=== PATIENT | female | born 2000 | race Caucasian/White ===

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

== ENCOUNTER → 2022-03-30 13:49 | Outpatient (BNVA) | payer BC, MEDICAID, SELFPAY | PROVIDERS: PCP Nurse Practitioner; Visit Provider Registered Nurse Neonatal Intensive Care | DX: J02.9 Acute pharyngitis, unspecified (principal) | CPT/HCPCS: 87880 ==

== ENCOUNTER → 2022-08-05 14:42 | Outpatient (BNVA) | payer BC, MEDICAID, SELFPAY | PROVIDERS: PCP Nurse Practitioner; Visit Provider Nurse Practitioner Family | DX: M79.641 Pain in right hand (principal) | CPT/HCPCS: 73130 ==

== ENCOUNTER 2022-10-17 22:19 | Emergency (ER) | payer BC, MEDICAID, SELFPAY ==
[2022-10-17 22:47] VITALS: BP 116/75; PULSE 66; RESP 16; TEMP 36.7; O2SAT 100; BMI 31.1
--- NOTE | 2022-10-17 23:08 | ED_ITS ---
HPI - Female Genitourinary General: Chief complaint: Vaginal Bleeding Stated complaint: vaginal bleeding, 6 weeks Time Seen by Provider: 10/17/22 22:56 History of Present Illness: Patient is a G2, P1 7-week 21-year-old female who comes to the ED with vaginal bleeding. Patient says her last menstrual period was on August 29, 2022. She states that tonight she had sexual intercourse and after that she started having some light vaginal bleeding. She describes the bleeding as red blood but is not needing to wear any pads for the bleeding. She denies any fevers, c hills, abdominal pain, cramping pain, dysuria, hematuria or vaginal discharge. Patient does endorse some baseline nausea since becoming but denies any other symptoms. Associated symptoms: Deny abdominal pain, headache(s) or nausea Date of Last Menstrual Period: 08/29/22 Review of Systems Const: Denies: fever(s), chills or fatigue Eyes: Denies: change in vision or eye discomfort ENMT: Denies: throat pain, odynophagia, nasal discharge or nasal congestion Card: Denies: chest pain, palpitations, edema, swelling of feet/ankles, dyspnea on exertion or orthopnea Resp: Denies: dyspnea, productive cough or non-productive cough GI: Denies: abdominal pain, nausea, vomiting, diarrhea, constipation or abdiel tochezia : Reports: vaginal bleeding; Denies: flank pain, dysuria or hematuria Musc: Denies: neck pain, back pain or extremity swelling Skin/Breast: Denies: rash or new lesions Neuro: Denies: headache(s), numbness in extremities or weakness in extremities [facility] ED PFSH: Social History Smoking and tobacco status: current every day smoker Female Reproductive History: Date of last menstrual period: 08/29/22 Para: 1 Physical Exam Const: COMMON NORMALS: no acute distress, patient oriented x3, healthy a ppearing and alert HENMT: COMMON NORMALS: normocephalic HEAD & SCALP: normocephalic MOUTH: Normal oral and palatal mucosa present THROAT: posterior oropharynx normal and uvula midline Neck/C-Spine: COMMON NORMALS: supple GENERAL: Yes normal visual inspection Resp: COMMON NORMALS: normal respiratory effort, No retractions, No use of accessory muscles and clear to auscultation bilaterally AUSCULTATION: clear to auscultation bilaterally Cardio: COMMON NORMALS: regular rate, regular rhythm, S1 normal heart sound present, S2 normal heart sound present, No gallops present (Cardio), No clicks present (Cardio), No murmurs present (Cardio) and Peripheral pulses 2+ throughout RATE: regular rate RHYTHM: regular rhythm HEART SOUNDS: S1 normal heart sound present and S2 normal heart sound present PERIPHERAL PULSES: Peripheral pulses 2+ throughout GI: COMMON NORMALS: Normal to inspection, nondistended, normoactive bowel sounds present, Soft to palpation, non-tender and no masses PALPATION: Yes Soft to palpation : COMMON NORMALS: Yes no CVA tenderness BLADDER/KIDNEY EXAM: Yes no CVA tenderness Back/Pelvis: COMMON NORMALS: no CVA tenderness Extremity: COMMON NORMALS: normal to inspection Neuro: COMMON NORMALS: patient oriented x3 SENSORIUM/ORIENTATION: Yes alert GAIT: Yes Normal gait present Skin: GENERAL SKIN EXAM: dry skin Course Vital Signs: Vital signs: Vital Signs Temperature 98.1 F 10/17/22 22:47 Pulse Rate 57 L 10/18/22 01:08 Respiratory Rate 16 10/18/22 01:08 Blood Pressure 112/48 10/18/22 01:08 Pulse Oximetry 100 10/18/22 01:08 Oxygen Delivery Me thod Room Air 10/17/22 23:16 [facility] - Female Medical Decision Making Patient is a G2, P1 7-week 21-year-old female who comes to the ED with vaginal bleeding. Patient says her last menstrual period was on August 29, 2022. She states that tonight she had sexual intercourse and after that she started having some light vaginal bleeding. She describes the bleeding as red blood but is not needing to wear any pads for the bleeding. She denies any fevers, chills, abdominal pain, cramping pain, dysuria, hematuria or vaginal discharge. Patient does endorse some baseline nausea since becoming but denies any other symptoms. Vitals are stable. Exam of the patient is benign she appears nontoxic in no acute distress or pain. CBC is unremarkable. Beta hCG quant 18,690. UA was unremarkable. Ultrasound showed single live intrauterine gestational measuring 6 weeks and no other acute findings noted. Patient was stable for discharge home and diagnosed with vaginal bleeding in the first trimester Bleeding is likely due to post intercourse. She was told to follow-up with her OB doctor within the next week for reevaluation. Strict return to ED precautions given. Patient understood and agreed with plan. Lab Data I reviewed the patient's lab results. 10/17/22 23: Radiology Impressions Obstetrics Ultrasound 10/17/22:21 IMPRESSION: 1. Single live intrauterine gestation measuring 6 weeks and 0 days by ultrasound. 2. Both ovaries not visualized. Laboratory Results WBC 9.3 10^3/uL (4.5-13.0) 10/17/22 23: RBC 5.24 10^6/uL (4.1-5.3) 10/17/22: Hgb 12.9 g/dL (11.5-15.3) 10/17/22: Hct 41.6 % (37.0-47.0) 10/17/22: MCV 79.4 fl (81-99) L 10/17/22: MCH 24.6 pg (28.0-34.0) L 10/17/22 23: MCHC 31.0 g/dL (30.0-36.0) 10/17/22: RDW 13.8 % (12.1-15.1) 10/17/22: Plt Count 250 10^3/cmm (130-400) 10/17/22 23: MPV 10.1 fL (7.4-10.4) 10/17/22 23: Neut % (Auto) 71.4 % 10/17/22 23: Lymph % (Auto) 19.7 % 10/17/22 23: [place] % (Auto) 6.6 % 10/17/22 23: Eos % (Auto) 1.5 % 10/17/22 23: Baso % (Auto) 0.4 % 10/17/22 23: Neut # (Auto) 6.65 10^3/uL (1.8-8.0) 10/17/22 23: Lymph # (Auto) 1.8 10^3/uL (1.5-6.5) 10/17/22 23:03 [place] # (Auto) 0.6 10^3/uL (0.2-0.9) 10/17/22 23:03 Eos # (Auto) 0.1 10^3/uL (0.0-0.8) 10/17/22 23:03 Baso # (Auto) 0.0 10^3/uL (0.0-0.1) 10/17/22 23:03 Nucleated RBC % (auto) 0 % 10/17/22 23:03 Nucleated RBCs # 0.0 /100WBC 10/17/22 23:03 Ser , Semi-Qnt 30459.00 mIU/mL 10/17/22 23:03 Urine Color Yellow (Yellow) 10/18/22 00:15 Urine Appearance Clear (CLEAR) 10/18/22 00:15 Urine pH 6 (5-7) 10/18/22 00:15 Ur Specific [place] 1.020 (1.005-1.030) 10/18/22 00:15 Urine Protein Neg (Negative) 10/18/22 00:15 Urine Glucose (UA) Norm (Normal) 10/18/22 00:15 Urine Ketones Negative (Negative) 10/18/22 00:15 Urine Blood 3+ (Negative) H 10/18/22 00:15 Urine Nitrate Negative (Negative) 10/18/22 00:15 Urine Bilirubin Neg (Negative) 10/18/22 00:15 Urine Urobilinogen Norm mg/dL (Negative) 10/18/22 00:15 Ur Leukocyte Esterase Trace (Negative) H 10/18/22 00:15 Urine RBC 25-40 /hpf (0-2) H 10/18/22 00:15 Urine WBC 0-4 /hpf (0-5) H 10/18/22 00:15 Ur Squamous Epith Cells 0-4 /hpf (0-5) H 10/18/22 00:15 Amorphous Sediment Not Reportable 10/18/22 00:15 Urine Bacteria 1+ /hpf (NONE) H 10/18/22 00:15 Urine Sperm 2+ /hpf 10/18/22 00:15 Blood Type A Positive 10/17/22 23:15 Rho(D) Type Positive 10/17/22 23:15 Discharge Plan Discharge Patient Disposition: Home Clinical Impression: Vaginal bleeding before 22 weeks gestation Condition: Stable Discharge Orders: Discharge ED (Routine); Ordered 05/21/23 Ordered By: Jamey Martinez Referrals: Karlos Magdaleno MD [Primary Care Provider] - Discharge Diet: Regular Discharge Activity: Increase activity as tolerated Patient Instructions: (ED), at 7 to 10 Weeks (ED) Activity Restrictions/Additional Instructions: Follow-up with your OB provider at your next scheduled appointment. Take medications as prescribed. Return to the ER or your medical provider if condition worsens. Please read and understand discharge instructions. Thank you for choosing [facility] for your healthcare needs today. Please realize this is an emergency room and that we are providing you with a medical screening exam and this may not be complete and all inclusive of all the testing and or work up that you may need to determine your ailment or severity of your illness. It is very important that you follow up as instructed or that you return to the Emergency Department should you have concerns or if your condition changes or worsens in any way. Coding Level of Care Code ED Jeeper Operator for Brunilda Gotti
[2022-10-17 23:16] VITALS: BP 124/83; PULSE 74; RESP 16; O2SAT 100
--- NOTE | 2022-10-17 23:21 | USR_ITS ---
PROCEDURE INFORMATION: Exam: US , Limited Exam date and time: 10/17/2022 11:35 PM Age: 21 years old Clinical indication: Lmp or gestational age (in weeks): Vag bleed; Antepartum complications; Bleeding; ; Additional info: 7 weeks with vaginal bleeding TECHNIQUE: Imaging protocol: Real-time ultrasound of the maternal uterus with image documentation. Exam focused on the clinical indication. COMPARISON: US OB >= 14 weeks fetus [id number] 06/09/2021 4:04 PM FINDINGS: Gestation: There is a single intrauterine gestational sac present. heart rate: heart rate is 122 bpm. BIOMETRY: Volin-Rump length (CRL): pole is present with crown-rump length of 0.32 cm. Ultrasound age is 6 weeks 0 days with COLT of 06/12/2023. MATERNAL: Right ovary/adnexa: Right ovary not visualized. Left ovary/adnexa: Left ovary not visualized. US/US OB limited [id number] IMPRESSION: 1. Single live intrauterine gestation measuring 6 weeks and 0 days by ultrasound. 2. Both ovaries not visualized.
[2022-10-17 23:22] LABS: Basophils % 0.4 %; Eosinophils # 0.1 10^3/uL (0.0-0.8); Eosinophils % 1.5 %; Hematocrit 41.6 % (37.0-47.0); Hemoglobin 12.9 g/dL (11.5-15.3); Lymphocytes # 1.8 10^3/uL (1.5-6.5); Lymphocytes % 19.7 %; Mean Corpuscular Hemoglobin 24.6 pg (28.0-34.0); Mean Corpuscular Volume 79.4 fl (81-99); Mean Platelet Volume 10.1 fL (7.4-10.4); Monocytes # 0.6 10^3/uL (0.2-0.9); Monocytes % 6.6 %; Neutrophils # 6.65 10^3/uL (1.8-8.0); Neutrophils % 71.4 %; Nucleated Red Blood Cells % 0 %; Platelet Count 250 10^3/cmm (130-400); Red Blood Count 5.24 10^6/uL (4.1-5.3); Red Cell Distribution Width 13.8 % (12.1-15.1); White Blood Count 9.3 10^3/uL (4.5-13.0)
[2022-10-18 00:42] LABS: Add Urine Microscopic? YES; Bilirubin Urine Neg (Negative); Blood Urine 3+ (Negative); Glucose Urine UA Norm (Normal); Ketones Urine Negative (Negative); Leukocyte Esterase Urine Trace (Negative); Nitrate Urine Negative (Negative); Protein Urine Neg (Negative); Urine Appearance Clear (CLEAR); Urine Color Yellow (Yellow); Urobilinogen Urine Norm (Negative); pH Urine 6 (5-7)
[2022-10-18 00:43] LABS: Bacteria Urine 1+ /hpf; WBC Urine 0-4 /hpf (0-5)
[2022-10-18 00:44] LABS: Sperm Urine 2+ /hpf; Squamous Epithelial Cell Urine 0-4 /hpf (0-5)
[2022-10-18 00:45] LABS: Add Urine Culture? Yes; RBC Urine 25-40 /hpf (0-2)
[2022-10-18 01:08] VITALS: BP 112/48; PULSE 57; RESP 16; O2SAT 100
== END 2022-10-18 01:10 | disposition home or self-care (01) ==
PROVIDERS: Emergency Medicine; Emergency Provider Physician Assistant; PCP Family Medicine
DX: O20.9 Hemorrhage in early pregnancy, unspecified (principal); O99.331 Smoking (tobacco) complicating pregnancy, first trimester; F17.210 Nicotine dependence, cigarettes, uncomplicated; Z3A.01 Less than 8 weeks gestation of pregnancy
CPT/HCPCS: 76815; 81001; 84702; 85025; 86900; 87086; 99284

== ENCOUNTER 2023-03-28 21:43 | Outpatient (CLI) | payer MEDICAID, SELFPAY ==
[2023-03-28] VITALS (9 sets, daily range): BP systolic 112–123; BP diastolic 56–71; PULSE 87–108; RESP 16; TEMP 35.9; BMI 29.9
[2023-03-28 22:54] LABS: Add Urine Culture? Yes; Add Urine Microscopic? YES; Amorphous Sediment Urine 2+ /hpf; Bacteria Urine 1+ /hpf; Bilirubin Urine Neg (Negative); Blood Urine Neg (Negative); Glucose Urine UA Norm (Normal); Ketones Urine Negative (Negative); Leukocyte Esterase Urine 2+ (Negative); Nitrate Urine Negative (Negative); Protein Urine Neg (Negative); Squamous Epithelial Cell Urine 0-4 /hpf (0-5); Urine Appearance Hazy (CLEAR); Urine Color Yellow (Yellow); Urobilinogen Urine Neg (Negative); WBC Urine 25-40 /hpf (0-5); pH Urine 7 (5-7)
== END 2023-03-28 23:23 | disposition home or self-care (01) ==
LOC: OPOB 21:43 → OBGYN 21:46
PROVIDERS: PCP Family Medicine; Visit Provider Family Medicine
DX: O26.899 Other specified pregnancy related conditions, unspecified trimester (principal); Z3A.00 Weeks of gestation of pregnancy not specified; R10.9 Unspecified abdominal pain; N89.8 Other specified noninflammatory disorders of vagina
CPT/HCPCS: 59025; 81001; 83986; 87086; 99211

== ENCOUNTER 2023-04-01 21:44 | Outpatient (CLI) | payer MEDICAID, SELFPAY ==
[2023-04-01 21:44] VITALS: BMI 31.8
[2023-04-01 22:12] VITALS: BP 120/68; PULSE 96; TEMP 36.1
[2023-04-01 22:27] VITALS: BP 113/69; PULSE 96
[2023-04-01 22:42] VITALS: BP 135/79; PULSE 100
[2023-04-01 22:57] VITALS: BP 118/66; PULSE 97
[2023-04-01 23:13] VITALS: BP 118/66; PULSE 97
== END 2023-04-01 23:19 | disposition home or self-care (01) ==
LOC: OPOB 21:52 → OBGYN 22:08
PROVIDERS: PCP Family Medicine; Visit Provider Family Medicine
DX: O46.90 Antepartum hemorrhage, unspecified, unspecified trimester (principal); Z3A.00 Weeks of gestation of pregnancy not specified; R10.9 Unspecified abdominal pain
CPT/HCPCS: 59025; 99211

== ENCOUNTER 2023-05-05 21:45 | Outpatient (CLI) | payer MEDICAID, SELFPAY ==
[2023-05-05] VITALS (9 sets, daily range): BP systolic 122–147; BP diastolic 63–87; PULSE 77–107; RESP 16; BMI 33.6
[2023-05-05] MEDS: promethazine 25 mg/mL SDV 1 mL IM (23:27)
[2023-05-06 00:06] VITALS: BP 131/80; PULSE 70
[2023-05-06 00:21] VITALS: BP 121/71; PULSE 102
== END 2023-05-06 00:30 | disposition home or self-care (01) ==
LOC: OPOB 21:55 → OBGYN 21:56
PROVIDERS: PCP Family Medicine; Visit Provider Family Medicine
DX: O21.9 Vomiting of pregnancy, unspecified (principal); Z3A.00 Weeks of gestation of pregnancy not specified
CPT/HCPCS: 59025; 96372; 99211; J2550

== ENCOUNTER 2023-05-22 09:40 | Outpatient (CLI) | payer MEDICAID, SELFPAY ==
[2023-05-22 09:56] VITALS: BMI 34.7
[2023-05-22 10:00] VITALS: BP 132/84; PULSE 92
[2023-05-22 10:17] LABS: Bilirubin Urine Neg (Negative); Blood Urine 2+ (Negative); Glucose Urine UA Norm (Normal); Ketones Urine Negative (Negative); Leukocyte Esterase Urine 2+ (Negative); Nitrate Urine Negative (Negative); Protein Urine Neg (Negative); Specific Gravity, Urine 1.015 (1.005-1.030); Urine Appearance Hazy (CLEAR); Urine Color Yellow (Yellow); Urobilinogen Urine Norm (Negative); WBC Urine >100 /hpf (0-5); pH Urine 6 (5-7)
[2023-05-22 10:18] LABS: Add Urine Culture? Yes; Bacteria Urine 2+ /hpf
[2023-05-22 10:21] VITALS: BP 131/73; PULSE 82
[2023-05-22 10:33] LABS: Urine Creatinine 93 mg/dL (28-217); Urine Protein Random 16 mg/dL
[2023-05-22 10:34] LABS: UPRO/UCREAT Ratio 0.17 mg/mg CR
[2023-05-22 10:40] VITALS: BP 132/83; PULSE 83
[2023-05-22 10:47] VITALS: BP 132/83; PULSE 83
== END 2023-05-22 10:45 | disposition home or self-care (01) ==
LOC: OPOB 09:45 → OBGYN 09:46
PROVIDERS: Absent Provider Family Medicine; PCP Family Medicine; Visit Provider Family Medicine
DX: O16.9 Unspecified maternal hypertension, unspecified trimester (principal); Z3A.00 Weeks of gestation of pregnancy not specified
CPT/HCPCS: 59025; 81001; 82570; 84156; 87086; 99211

== ENCOUNTER 2023-05-26 20:13 | Outpatient (CLI) | payer MEDICAID, SELFPAY ==
[2023-05-26 20:06] VITALS: BMI 37.5
[2023-05-26 20:23] VITALS: BP 143/75; PULSE 103; TEMP 35.7
[2023-05-26 20:55] VITALS: BP 136/85; PULSE 91; TEMP 36
[2023-05-26 21:00] VITALS: BP 136/38; PULSE 105; RESP 16; TEMP 36
== END 2023-05-26 21:00 | disposition home or self-care (01) ==
LOC: OPOB 20:14 → OBGYN 20:15
PROVIDERS: PCP Family Medicine; Visit Provider Family Medicine
DX: O26.899 Other specified pregnancy related conditions, unspecified trimester (principal); Z3A.00 Weeks of gestation of pregnancy not specified; M54.9 Dorsalgia, unspecified
CPT/HCPCS: 59025; 99211

== ENCOUNTER 2023-05-30 14:17 | Outpatient (CLI) | payer MEDICAID, SELFPAY ==
[2023-05-30] VITALS (10 sets, daily range): BP systolic 117–160; BP diastolic 59–92; PULSE 86–103; BMI 37.0
== END 2023-05-30 16:45 | disposition home or self-care (01) ==
LOC: OPOB 14:17 → OBGYN 14:18
PROVIDERS: PCP Family Medicine; Visit Provider Family Medicine
DX: O26.899 Other specified pregnancy related conditions, unspecified trimester (principal); Z3A.00 Weeks of gestation of pregnancy not specified; R10.9 Unspecified abdominal pain
CPT/HCPCS: 59025; 99211

== ENCOUNTER 2023-06-02 15:27 | Outpatient (CLI) | payer MEDICAID, SELFPAY ==
[2023-06-02] VITALS (9 sets, daily range): BP systolic 117–161; BP diastolic 64–97; PULSE 102–116; RESP 16–18; TEMP 36.4; BMI 37.2
[2023-06-02 16:11] LABS: Basophils % 0.4 %; Eosinophils % 0.5 %; Hematocrit 39.3 % (36-47); Lymphocytes # 1.4 10^3/uL (1.5-6.5); Lymphocytes % 16.8 %; Mean Corpuscular HGB Conc 29.3 g/dL (30-55); Mean Corpuscular Hemoglobin 24.4 pg (27-33); Mean Corpuscular Volume 83.3 fl (85-98); Mean Platelet Volume 11.1 fL (7.4-10.4); Monocytes # 0.6 10^3/uL (0.2-0.9); Monocytes % 7.2 %; Neutrophils # 6.18 10^3/uL (1.8-8.0); Neutrophils % 74.4 %; Nucleated Red Blood Cells % 0 %; Platelet Count 102 10^3/cmm (157-399); Red Blood Count 4.72 10^6/uL (3.85-5.65); Red Cell Distribution Width 16.3 % (12.1-15.1); White Blood Count 8.31 10^3/uL (4.5-13.0)
[2023-06-02 16:24] LABS: Glucose Urine UA Norm (Normal); Ketones Urine 1+ (Negative); Protein Urine Trace (Negative); Urine Appearance SL Hazy (CLEAR); Urine Color Yellow (Yellow); pH Urine 5 (5-7)
[2023-06-02 16:25] LABS: Bilirubin Urine Neg (Negative); Blood Urine 3+ (Negative); Leukocyte Esterase Urine 2+ (Negative); Nitrate Urine Negative (Negative); Urobilinogen Urine 1 mg/dL (Negative)
[2023-06-02 16:27] LABS: Bacteria Urine 1+ /hpf; Mucus Urine 1+ /hpf; WBC Urine 40-55 /hpf (0-5)
[2023-06-02 16:28] LABS: Add Urine Culture? Yes
[2023-06-02 17:10] LABS: Alanine Aminotransferase 10 U/L (0-33); Albumin Level 3.1 g/dL (3.5-5.2); Alkaline Phosphatase 188 U/L (35-105); Anion Gap 15.1 (5-19); Aspartate Amino Transferase 18 U/L (0-32); Blood Urea Nitrogen 12 mg/dL (6-20); Calcium 8.9 mg/dL (8.5-10.5); Carbon Dioxide 21 mmol/L (22-29); Chloride 104 mmol/L (98-107); Creatinine Clr Calc Pharmacy 152.1103; Globulin 3.4 g/dL (1.3-4.6); Glomerular Filtration Rate 127.5 mL/min (90-130); Glucose 84 mg/dL (65-115); Osmolality Calculated 281 mOsm/kg (285-295); Potassium 4.1 mmol/L (3.5-5.1); Sodium 136 mmol/L (136-145); Total Bilirubin 0.2 mg/dL (0.15-1.2); Total Protein 6.5 g/dL (6.6-8.7); Uric Acid 5.8 mg/dL (2.4-5.7)
[2023-06-02 17:12] LABS: Urine Creatinine 177 mg/dL (28-217)
[2023-06-02 17:13] LABS: UPRO/UCREAT Ratio 0.19 mg/mg CR; Urine Protein Random 33 mg/dL
== END 2023-06-02 17:30 | disposition home or self-care (01) ==
LOC: OPOB 15:35 → OBGYN 15:37
PROVIDERS: PCP Family Medicine; Visit Provider Family Medicine
DX: O16.9 Unspecified maternal hypertension, unspecified trimester (principal); Z3A.00 Weeks of gestation of pregnancy not specified
CPT/HCPCS: 36415; 59025; 80053; 81001; 82570; 84156; 84550; 85025; 87086; 99211

== ENCOUNTER 2023-06-04 21:29 | Inpatient (IN) | payer MEDICAID, SELFPAY ==
[2023-06-04] VITALS (41 sets, daily range): BP systolic 96–149; BP diastolic 52–105; PULSE 83–118; RESP 17; TEMP 36.7; O2SAT 98–100; BMI 37.5
[2023-06-04 20:42] LABS: Bilirubin Urine Neg (Negative); Blood Urine 3+ (Negative); Glucose Urine UA Norm (Normal); Ketones Urine 1+ (Negative); Nitrate Urine Negative (Negative); Protein Urine 1+ (Negative); Urine Appearance Cloudy (CLEAR); Urine Color Yellow (Yellow); pH Urine 6 (5-7)
[2023-06-04 20:43] LABS: Add Urine Microscopic? YES; Bacteria Urine 2+ /hpf; Leukocyte Esterase Urine 2+ (Negative); RBC Urine 25-40 /hpf (0-2); Urobilinogen Urine 1 mg/dL (Negative); WBC Urine 55-80 /hpf (0-5)
[2023-06-04 20:44] LABS: Add Urine Culture? No
[2023-06-04 21:28] LABS: Urine Creatinine 169 mg/dL (28-217)
[2023-06-04 21:31] LABS: UPRO/UCREAT Ratio 0.24 mg/mg CR; Urine Protein Random 41 mg/dL
[2023-06-04 21:56] LABS: Basophils % 0.3 %; Eosinophils # 0.1 10^3/uL (0.0-0.8); Eosinophils % 0.4 %; Hematocrit 35.8 % (36-47); Lymphocytes # 2.4 10^3/uL (1.5-6.5); Lymphocytes % 20.4 %; Mean Corpuscular HGB Conc 32.1 g/dL (30-55); Mean Corpuscular Hemoglobin 24.3 pg (27-33); Mean Corpuscular Volume 75.7 fl (85-98); Mean Platelet Volume 10.8 fL (7.4-10.4); Monocytes # 0.7 10^3/uL (0.2-0.9); Monocytes % 5.6 %; Neutrophils # 8.38 10^3/uL (1.8-8.0); Neutrophils % 72.7 %; Nucleated Red Blood Cells % 0 %; Platelet Count 222 10^3/cmm (157-399); Red Blood Count 4.73 10^6/uL (3.85-5.65); Red Cell Distribution Width 16.4 % (12.1-15.1); White Blood Count 11.53 10^3/uL (4.5-13.0)
[2023-06-04] MEDS: lactated ringers 1,000 ML 999 ML IV (22:00)
--- NOTE | 2023-06-04 23:26 | P.ANESASSM_ITS ---
Pre-Anesthetic Assessment Height/Weight: Height 1.55 m Weight 90.265 kg Temp Pulse Resp BP Pulse Ox O2 Del Method 98.1 F 118 H 17 118/74 98 Room Air 06/04/23 22:58 06/04/23 23:23 06/04/23 21:21 06/04/23 23:22 06/04/23 23:23 06/04/23 21:43 Preop Diagnosis: Labor pain TUTU Was Beta Timoteo taken within 24 hours: N/A Was Clonidine taken within 24 hours: N/A Social No alcohol and No tobacco Exam alert, oriented x 3, clear to auscultation bilaterally and regular rate & rhythm Airway Submandibular: within normal limits Cervical ROM: within normal limits Mallampati: Class II Dentition: full History/ROS No significant history except as noted and No significant complaints CV/HEM None reported None reported Hepatic None reported GI None reported Metabolic None reported Musc/skel None reported Neuropsych None reported Anesthetic Plan ASA status: 2 Anesthesia: Anesthesia Evaluation and Regional (specify below) (TUTU) Risk of > 500 ml blood loss (7ml/kg in children): No Medications/Allergies Home Medications Medication Instructions Recorded Confirmed Last Taken Type [id number] 1 mg 1 tab PO DAILY 03/28/23 03/28/23 1 Day Ago History tablet ~03/27/23 Allergies Allergy/AdvReac Type Severity Reaction Status Date / Time No Known Allergies Allergy Verified 03/28/23 23:04 Current Medications Generic Name Dose Route Start Last Admin Trade Name Freq PRN Reason Stop Dose Admin Lactated Ringer's 1,000 mls @ 999 mls/hr 06/04/23 21:19 06/04/23 22:00 Lactated Ringers IV 999 mls/hr .Q1H1M PRN Administration See label comments PFS Anesthesia Social History Smoking and tobacco/nicotine status: current every day tobacco/nicotine user Female Reproductive History : 3 Para: 1 Data Anesthesia 06/04/23 21:20 Short CBC 06/04/23 Range/Units 21:20 WBC 11.53 (4.5-13.0) 10^3/uL Hgb 11.50 L (12.4-14.8) g/dL Hct 35.8 L (36-47) % MCV 75.7 L (85-98) fl Plt Count 222 (157-399) 10^3/cmm Neut % (Auto) 72.7 % Neut # (Auto) 8.38 H (1.8-8.0) 10^3/uL Urine 06/04/23 Range/Units 20:00 Urine Color Yellow (Yellow) Urine Appearance Cloudy A (CLEAR) Urine pH 6 (5-7) Ur Specific [place] 1.020 (1.005-1.030) Urine Protein 1+ H (Negative) Urine Glucose (UA) Norm (Normal) Urine Ketones 1+ H (Negative) Urine Nitrate Negative (Negative) Urine Bilirubin Neg (Negative) Ur Leukocyte Esterase 2+ H (Negative) Urine RBC 25-40 H (0-2) /hpf Urine WBC 55-80 H (0-5) /hpf Blood Bank 06/04/23 21:20 Blood Type A Positive Rho(D) Type Rh positive Antibody Screen Negative Cardiac Studies: 2 No Data to Display
[2023-06-04] MEDS: dextrose 5%-lactated ringers 1,000 ML 125 ML IV (23:28)
--- NOTE | 2023-06-04 23:29 | ANES.PROC ---
Anesthesia Procedures Procedure/Date: 06/04/23 Epidural: Time Out Performed: Yes Consents Signed: Procedure Consent Consent: requested by attending/covering physician, from patient, risks and benefits reviewed and patient agrees to proceed Lumbar Level: L3-L4 Epidural position: sitting Epidural procedure: sterile prep of area, 1% lidocaine to numb the area, 18 g needle, neg for paresthesia, test dose given, 1.5% xylocaine 1:200k epi (4cc), 0.2% Ropivacaine bolus ml (4cc and Fentanyl 100 mcg), placed PCEA, no systemic response, sterile dressing applied, L.U.D. no apparent complications and 0.2% Ropiavacaine @ mls/hr (10cc/hour. ANGELINE at 8cm. Cath placed 2.5 cm into epidural space. Pt tolerated well)
[2023-06-04] MEDS: ROPivacaine syringe 100 MG/50 ML SYRINGE 10 MG EPIDURAL (23:33)
[2023-06-05] VITALS (77 sets, daily range): BP systolic 97–145; BP diastolic 50–94; PULSE 60–129; RESP 16–17; TEMP 35.9–36.6; O2SAT 96–100
[2023-06-05] MEDS: lanolin oint 7 gm 1 APPLIC TOPICAL (01:45)
[2023-06-05] MEDS: ROPivacaine syringe 100 MG/50 ML SYRINGE 10 MG EPIDURAL (03:50)
[2023-06-05] MEDS: oxytocin 30 UNIT/500 ML BAG 600 UNIT IV (07:16)
--- NOTE | 2023-06-05 07:33 | P.HPUD_ITS ---
Labor & Delivery H&P Update Date of Procedure: June 05, 2023 Date H&P Performed: 06/02/23 Changes to previous documentation: The patient demonstrated cervical change, and had consistent contractions Admission Diagnosis: 22-year-old 3 para 2-0-0-2 at 39 weeks estimated gestational age Preop diagnosis: Labor pain Planned procedure: Spontaneous vaginal delivery Other information: The patient has had an unremarkable . There have been no complications. She has had some intermittent high blood pressures that have not been consistent the last couple visits. On further evaluation, the blood pressures appear to be response to pain and her anxiety, but are not it consiste ntly elevated. Her labs have been within normal limits. Her blood type was a positive. Her antibody screen was negative. She passed her glucose screen. Rubella immune. She is GBS negative. In the remainder of her infectious disease profile is within normal limits. Related Problem List Diagnoses (1) 39 weeks gestation of : A&P Assessment and plan (1) 39 weeks gestation of : I anticipate routine labor and delivery. Status: Acute
--- NOTE | 2023-06-05 07:37 | PM.DELIVERY ---
Delivery Note: Date of delivery: June 05, 2023 Pre-delivery diagnoses: 22-year-old 3 para 2-0-0-2 at 39 weeks estimated gestational age Post-delivery diagnoses: Status post spontaneous vaginal delivery Procedure: Spontaneous vaginal delivery Delivering Physician: Karlos Magdaleno Estimated blood loss (mL): 75 Pre-Delivery Course: The patient presented to the hospital in active labor. She was having intermittent elevated blood pressures. They improved when she was not in pain. An epidural was placed. An amniotomy was performed. She progressed to complete without difficulty. Delivery: DELIVERY: The patient progressed to complete without difficulty. She delivered a male with a weight of 3330 g with Apgars of 9, 9. The baby was delivered from the DARREL position and placed on the mother's abdomen. The cord was then clamped and cut. There was no nuchal cord. There was no meconium. The placenta and 3 vessel cord were delivered intact shortly thereafter. The perineum and vaginal vault were carefully examined. No lacerations were noted. Both the mother and the baby were in stable condition. A&P Assessment and plan (1) Spontaneous vaginal delivery: I anticipate routine care Coding Level of Care Code Acute Code for Chg Fwd Diagnoses Spontaneous vaginal delivery O80
--- NOTE | 2023-06-05 09:07 | ANE.PACU2 ---
Inpatient post-anesthesia follow up: Airway intact: Yes Vital signs: Temperature 98.1 F Pulse Rate 103 Respiratory Rate 17 Blood Pressure 118/61 Pulse Oximetry 96 Oxygen Delivery Me thod Room Air Oxygen Flow Rate Fraction of Inspir ed Oxygen Hydration adequate: Yes Nausea and vomiting: No Pain level: 2 Mental status: Baseline Epidural Start/End: Epidural Start Date: 06/04/23 Epidural Start Time: 23:05 Epidural End Date: 06/05/23 Epidural End Time: 07:37
[2023-06-05] MEDS: docusate sodium 100 mg Capsule PO ×2 (09:08→18:25)
[2023-06-05] MEDS: benzocaine-menthol 78 gm Canister 1 SPRAY TOPICAL (09:08)
[2023-06-05] MEDS: prenatal vitamin Capsule 1 CAP PO (09:08)
[2023-06-05] MEDS: ibuprofen 800 mg tablet PO ×3 (09:09→20:18)
[2023-06-05] MEDS: HYDROcodone-acetaminophen 5-325 mg Tablet PO ×2 (12:39→23:10)
--- NOTE | 2023-06-05 13:29 | PC.NURSE ---
Pt up to bathroom, then ambulated to OB-9 for post stay. Oriented to room and call light. Discussed feeding log, and proud parent pack, and what parents need to know.
[2023-06-05 20:35] LABS: Hematocrit 31.4 % (36-47); Mean Corpuscular HGB Conc 32.2 g/dL (30-55); Mean Corpuscular Hemoglobin 24.9 pg (27-33); Mean Corpuscular Volume 77.5 fl (85-98); Mean Platelet Volume 11.1 fL (7.4-10.4); Platelet Count 183 10^3/cmm (157-399); Red Blood Count 4.05 10^6/uL (3.85-5.65); Red Cell Distribution Width 16.5 % (12.1-15.1); White Blood Count 13.39 10^3/uL (4.5-13.0)
--- NOTE | 2023-06-06 08:56 | P.DS_ITS ---
Discharge Providers [employer] Date of Admission: 06/04/23 21:29 Date of Discharge: 06/06/23 Attending Provider at Admission: Karlos Magdaleno MD Attending Provider at Discharge: Karlos Magdaleno MD Primary Care Provider: Karlos Magdaleno MD Diagnoses at Discharge Discharge Diagnosis (1) Spontaneous vaginal delivery: Status: Acute Reason for Visit Reason for Visit: lower abd pain & cramping & GUTIERREZ Hospital Course Hospital Course The patient presented to the hospital in active labor. An epidural was placed. An amniotomy was performed. The patient progressed to complete and had an unremarkable spontaneous vaginal delivery. Her course was unr emarkable. Her bleeding was within normal limits. Her pain was well- controlled. She bottle-fed her . Information Peripartum Data: Infant Delivery Method: Vaginal Physical Exam Narrative: The patient is alert. She appears comfortable. Her heart has a regular rate and rhythm with no murmurs appreciated. Lungs are clear to auscultation bilaterally. Her fundus is firm and below the umbilicus. Urinary Catheter Management: Langston Latex: Cath Placed During This Visit: yes, but has since been removed by the nurse Reason for Continuing Indwelling Catheter: Decision to DC Catheter Urinary Catheter Date of Insertion: 06/05/23 Urinary Catheter Time of Insertion: 00:05 Date Urinary Catheter Removed: 06/05/23 Time Urinary Catheter Discontinued: 07:02 Discharge Data Studies Completed and Pending Laboratory Results WBC 13.39 10^3/uL (4.5-13.0) H 06/05/23 20:24 RBC 4.05 10^6/uL (3.85-5.65) 06/05/23 20:24 Hgb 10.10 g/dL (12.4-14.8) L 06/05/23 20:24 Hct 31.4 % (36-47) L 06/05/23 20:24 MCV 77.5 fl (85-98) L 06/05/23 20:24 MCH 24.9 pg (27-33) L 06/05/23 20:24 MCHC 32.2 g/dL (30-55) 06/05/23 20:24 RDW 16.5 % (12.1-15.1) H 06/05/23 20:24 Plt Count 183 10^3/cmm (157-399) 06/05/23 20:24 MPV 11.1 fL (7.4-10.4) H 06/05/23 20:24 Neut % (Auto) 72.7 % 06/04/23 21:20 Lymph % (Auto) 20.4 % 06/04/23 21:20 [place] % (Auto) 5.6 % 06/04/23 21:20 Eos % (Auto) 0.4 % 06/04/23 21:20 Baso % (Auto) 0.3 % 06/04/23 21:20 Neut # (Auto) 8.38 10^3/uL (1.8-8.0) H 06/04/23 21:20 Lymph # (Auto) 2.4 10^3/uL (1.5-6.5) 06/04/23 21:20 [place] # (Auto) 0.7 10^3/uL (0.2-0.9) 06/04/23 21:20 Eos # (Auto) 0.1 10^3/uL (0.0-0.8) 06/04/23 21:20 Baso # (Auto) 0.0 10^3/uL (0.0-0.1) 06/04/23 21:20 Nucleated RBC % (auto) 0 % 06/04/23 21:20 Nucleated RBCs # 0.0 /100WBC 06/04/23 21:20 Urine Color Yellow (Yellow) 06/04/23 20:00 Urine Appearance Cloudy (CLEAR) A 06/04/23 20:00 Urine pH 6 (5-7) 06/04/23 20:00 Ur Specific [place] 1.020 (1.005-1.030) 06/04/23 20:00 Urine Protein 1+ (Negative) H 06/04/23 20:00 Urine Glucose (UA) Norm (Normal) 06/04/23 20:00 Urine Ketones 1+ (Negative) H 06/04/23 20:00 Urine Blood 3+ (Negative) H 06/04/23 20:00 Urine Nitrate Negative (Negative) 06/04/23 20:00 Urine Bilirubin Neg (Negative) 06/04/23 20:00 Urine Urobilinogen 1 mg/dL (Negative) H 06/04/23 20:00 Ur Leukocyte Esterase 2+ (Negative) H 06/04/23 20:00 Urine RBC 25-40 /hpf (0-2) H 06/04/23 20:00 Urine WBC 55-80 /hpf (0-5) H 06/04/23 20:00 Ur Squamous Epith Cells 5-10 /hpf (0-5) H 06/04/23 20:00 Amorphous Sediment Not Reportable 06/04/23 20:00 Urine Bacteria 2+ /hpf (NONE) H 06/04/23 20:00 U Random Total Protein 41 mg/dL 06/04/23 20:00 Urine Creatinine 169 mg/dL (28-217) 06/04/23 20:00 Protein/Creatinin Ratio 0.24 mg/mg CR 06/04/23 20:00 Blood Type A Positive 06/04/23 21:20 Rho(D) Type Rh positive 06/04/23 21:20 Antibody Screen Negative 06/04/23 21:20 Vitals Last Vital Signs Temp 97.9 F 06/05/23 22:00 Pulse 72 06/05/23 22:00 Resp 17 06/05/23 22:00 BP 132/78 06/05/23 22:00 Pulse Ox 96 06/05/23 01:13 O2 Del Method Room Air 06/05/23 22:00 Results Labs OB ([facility]): Obstetrics US 10/17/22 Blood Type A Positive 06/04/23 Antibody Screen Negative 06/04/23 Hct 31.4 % (36-47) L 06/05/23 Hgb 10.10 g/dL (12.4-14.8) L 06/05/23 Rho(D) Type Rh positive 06/04/23 Plt Count 183 10^3/cmm (157-399) 06/05/23 Hep Bs Antibody 3.5 (11.5-1000) L 01/27/22 Rubella IgG Antibody 24.6 IU/mL (0.0-10.0) H 01/27/22 Uric Acid 5.8 mg/dL (2.4-5.7) H 06/02/23 VZV IgG Antibody <135.00 index L 01/27/22 Ser , Semi-Qnt 48403.00 mIU/mL 10/17/22 Micro Urine Specimen 06/02/23 Discharge Plan Discharge Patient Disposition: Home Condition: Stable Prescriptions: New ibuprofen 800 mg Tablet 800 mg PO TID Qty: 45 0RF Continued [id number] 1 mg Tablet 1 tab PO DAILY Discharge Orders: Discharge Order (Routine); Ordered 06/06/23 Ordered By: Karlos Magdaleno Discharge Diet: Usual diet Discharge Activity: Limit activity as instructed Patient Instructions: Opioid Safety Discharge Attestations [employer] Time Spent in Discharge Care*: less than 30 min Coding Level of Care Code Acute Code for Chg Fwd Diagnoses Spontaneous vaginal delivery O80
[2023-06-06] MEDS: docusate sodium 100 mg Capsule PO (09:28)
[2023-06-06] MEDS: ibuprofen 800 mg tablet PO (09:28)
[2023-06-06] MEDS: prenatal vitamin Capsule 1 CAP PO (09:28)
[2023-06-06 11:20] VITALS: BP 138/84; PULSE 82; RESP 16; TEMP 36.9; O2SAT 98
== END 2023-06-06 11:17 | disposition home or self-care (01) | DRG 807 ==
LOC: OPOB 21:30 → OBGYN 21:30
PROVIDERS: Admitting Provider Family Medicine; PCP Family Medicine; Visit Provider Family Medicine
DX: O99.334 Smoking (tobacco) complicating childbirth (principal); Z37.0 Single live birth; Z3A.39 39 weeks gestation of pregnancy
CPT/HCPCS: 36415; 51702; 59025; 59409; 81001; 82570; 84156; 85025; 85027; 86850; 86900; 96374; 99211; J2590; J2795; J3010; J7120; J7121

== ENCOUNTER → 2024-10-16 08:42 | Outpatient (BNVA) | payer BC, MEDICAID, SELFPAY | PROVIDERS: PCP Family Medicine; Visit Provider Family Medicine | DX: Z68.35 Body mass index [BMI] 35.0-35.9, adult (principal) | CPT/HCPCS: 80053; 84439; 84443; 85025 ==

== ENCOUNTER 2024-12-11 17:40 | Emergency (ER) | payer MEDICAID, SELFPAY ==
[2024-12-11 17:44] VITALS: BP 138/82; PULSE 97; RESP 14; TEMP 36.7; O2SAT 100; BMI 35.6
--- OUTSIDE RECORDS SUMMARY | 2024-12-11 17:45 | XMS_ITS | Continuity of Care Document ---
Author Organization [facility], [place], [facility] ([facility]) Address [address] [place] [address] Care Team Providers Care Senior Web Engineer Name Role Phone MEGAN WYATT Primary Care Provider [phone] Assessment No assessment recorded. Plan of Treatment Reminders Order Date Submit Date Provider Last Modified By Organization Details Last Modified Time Details Appointments ACUTE VISIT 2024 11:10A M WALK-IN Not available Not available Not available NOB 15 2024 02:15P M Timo Philippe MD Not available Not available Not available Lab beta-HCG , quantita tive, serum or plasma 2024 025 [facility], [address] [place] [address], [facility] [address] [place], [address], 12/11/2024 12:34:16 Referral None recorded . Procedures None recorded . Surgeries None recorded . Imaging None recorded . Medication Orders None recorded . Patient TargetsNo targets recorded. Patient InstructionsNo instructions recorded. Reason for Referral None Reported. Results Created Date Observation Date Name Description Value Unit Range Abnormal Flag Note LastModifiedBy Organization Detail LastModifiedTime 01/30/2001/28/2023 US, obste tric, 2nd trime ster No observ ation record ed. [email or web address] [facility] [address] [place] [address] 1, [place], [address], 02/05/2023 16:24:16 Result Notes None recorded. Problems Name Problem SNOMED Code Status Onset Date Resolution Date Notes Provider Name and Address Organization Details Recorded Time Normal in multigravid a 2530405926961 06 Active 2022 KENNEDY ASCENCIO [facility] 3 14:10:05 depression 27651668 Active 2023 ROSANNE ALCALA [facility] 4 15:19:54 Contracepti on care management Active 2023 ROSANNE DARYL [facility] 4 15:19:58 Problem Notes None recorded. Medical Equipment None Reported. Allergies No known drug allergies Medications Name Sig Start Date Stop Date Status Note LastModified by Organization Details LastModified Time amoxicill in 500 mg capsule TAKE 2 CAPSULES BY MOUTH TWICE DAILY for 10 days 2024 active Not Available Not Available Not Avai lable cetirizin e 10 mg tablet TAKE 1 TABLET BY MOUTH EVERY DAY active Not Available Not Available No t Available ibuprofen 800 mg tablet TAKE ONE TABLET BY MOUTH THREE TIMES DAILY 07/14 completed Not Available Not Available Not Available amoxicill in 500 mg tablet TAKE ONE TABLET BY MOUTH TWICE DAILY FOR 10 DAYS 11/03 completed Not Available Not Available Not Available cephalexi n 500 mg capsule TAKE ONE CAPSULE BY MOUTH THREE TIMES DAILY FOR SEVEN DAYS 04/15 completed Not Available Not Available Not Available promethaz ine 25 mg tablet TAKE 1 TABLET BY MOUTH EVERY 4 HOURS 07/14 completed Not Available Not Available Not Available Pepcid 20 mg tablet BID prn 04/15 completed Recorded 08/21/19 22 10:13AM by Rosanne Alcala RN, Office Visit; Refill Quantity : 60; Tablet; Not Available Not Available Not Available fluticaso ne propionat e 50 mcg/actua tion nasal spray,deirdre pension USE 2 SPRAYS IN EACH NOSTRIL TWICE DAILY NEEDED FOR nasal congesti on 12/11 completed Not Available Not Available Not Available hydroxyzi ne pamoate 25 mg capsule TAKE 1 TABLET BY MOUTH TWICE DAILY NEEDED FOR ANXIETY 12/11 completed Not Available Not Available Not Available escitalop chivo 10 mg tablet TAKE 1 TABLET BY MOUTH EVERY DAY 12/11 completed Not Available Not Available Not Available Sprintec (28) 0.25 mg-0.035 mg tablet TAKE 1 TABLET BY MOUTH EVERY DAY 12/11 completed Not Available Not Available Not Available Vitamin qd 01/12 completed vo JR/tn; Recorded 04/07/20 1:56PM by Rosanne Alcala RN, Office Visit; Refill Quantity : 1; Tablet; Not Available Not Available Not Available tranexami c acid 650 mg tablet TAKE 2 TABLETS BY MOUTH THREE TIMES DAILY for 5 days. START DAY BEFORE EXPECTED PERIOD AND TAKE THREE TIMES DAILY for 5 days 12/11 completed Not Available Not Available Not Available 28 mg iron-800 mcg tablet Take 1 tablet every day by oral route for 90 days. 01/12 completed Not Available Not Available Not Available Vitamins Plus Low Iron 27 mg iron-1 mg tablet TAKE 1 TABLET BY MOUTH EVERY DAY 12/11 completed Not Available Not Available Not Available Zafemy 150 mcg-35 mcg/24 hr transderm al patch APPLY ONE PATCH every week 07/28 completed pt requeste d to change to pill due to heavy bleeding . JR/bh Not Available Not Available Not Available Vitals Date Recorded Body height Body mass index (BMI) Body weight Respiratory rate Oxygen saturation Oxygen saturation in Arterial blood by Pulse oximetry Heart rate Body temperature Systolic And Diastolic Provider Name and Address Organization Details Last Updated DateTime 156.21 cm 34.9 kg/m2 67099.3 7 g 17 /min 99 % 99 % 93 /min 98.3 [degF] 116/80 mm[Hg] MARCI STOUT [facility] 12:21:56 Social History Question Answer Notes LastModified by Organizat ion Details LastModified Time Tobacco Smoking Status Never Smoker KENNEDY kaplan [facility] 11/03/2022 14:04:47 What Was The Date Of Your Most Recent Tobacco Screening? 12/11/2024 [email or web address] Information not available 12/11/2024 What Is Your Relationship Status? Domestic Partner Information not available 11/03/2022 Are You Sexually Active? Yes Information not available 11/03/2022 Sex: Unknown Functional Status Question Answer Note LastModified by Organizat ion Details LastModified Time Do you use any illicit or recreational drugs? No Information not available 04/29/2023 Do you or have you ever used any other forms of tobacco or nicotine? Yes [email or web address] Information not available 12/11/2024 What is your level of alcohol consumption? 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 Yes Information not available 11/03/2022 Do you or have you ever used e-cigarettes or vape? Current user of electronic cigarettes [email or web address] Information not available 12/11/2024 Mental Status None recorded. Family History Relationship Description Onset Age of this Age Resolved Age Notes LastModified by Organization Details LastModified Time Father Hypertensive disorder [email or web address] Not available 14:04:25 Medical History No medical history recorded. Gynecological History Statement/Question Response Sexually Active? Y Obstetrics History GPAL:G 3 P 3 0 0 3 Type Value Full Term 3 Living 3 Total 3 Immunizations Vaccine Type Date Status Note Provider Nam e and Address Organization Details Recorded Time Tdap 9 completed ROSANNE kaplan [facility] 07/14/2023 15:11:48 IPV 4 completed ROSANNE kaplan [facility] 07/14/2023 15:11:48 meningococcal conjugate quadrivalent, MenACWY-TT (MCV4) 4 completed ROSANNE [facility]plan [facility] 07/14/2023 15:11:48 varicella 4 shari [facility] 07/14/2023 15:11:48 IPV 4 completed TREBA NEUSCHWANDER null, [facility] 11/03/2022 14:01:15 IPV 3 completed TREBA NEUSCHWANDER null, [facility] 11/03/2022 14:01:15 MMR 6 completed TREBA NEUSCHWANDER null, [facility] 11/03/2022 14:01:15 pneumococcal conjugate PCV 7 6 completed TREBA NEUSCHWANDER null, [facility] 11/03/2022 14:01:15 pneumococcal conjugate PCV 7 3 completed TREBA NEUSCHWANDER null, [facility] 11/03/2022 14:01:15 pneumococcal polysaccharide PPV23 3 completed TREBA NEUSCHWANDER null, [facility] 11/03/2022 14:01:15 Tdap 2 completed TREBA NEUSCHWANDER null, [facility] 11/03/2022 14:01:15 Tdap 6 completed TREBA NEUSCHWANDER null, [facility] 11/03/2022 14:01:15 Hep B, unspecified formulation 3 completed TREBA NEUSCHWANDER null, [facility] 11/03/2022 14:01:16 Hep B, unspecified formulation 3 completed TREBA NEUSCHWANDER null, [facility] 11/03/2022 14:01:16 Hib (PRP-OMP) 6 completed TREBA NEUSCHWANDER null, [facility] 11/03/2022 14:01:16 Hib (PRP-T) 4 completed TREBA NEUSCHWANDER null, [facility] 11/03/2022 14:01:16 Hib (PRP-T) 3 completed TREBA NEUSCHWANDER null, [facility] 11/03/2022 14:01:16 Hib (PRP-T) 3 completed TREBA NEUSCHWANDER null, [facility] 11/03/2022 14:01:16 meningococcal MCV4P 6 completed TREBA NEUSCHWANDER null, [facility] 11/03/2022 14:01:16 DTaP 4 completed TREBA NEUSCHWANDER null, [facility] 11/03/2022 14:01:16 DTaP 6 completed TREBA NEUSCHWANDER null, [facility] 11/03/2022 14:01:16 DTaP 3 completed TREBA NEUSCHWANDER null, [facility] 11/03/2022 14:01:16 DTaP-Hep B-IPV 4 completed TREBA NEUSCHWANDER null, [facility] 11/03/2022 14:01:16 Past Encounters Encounter ID Performer Location Encounter Start Date Encounter Closed Date Diagnosis/Indication Diagnosis SNOMED-CT Code Diagnosis ICD10 Code Diagnosis Note [id number] ROBB COURTNEY [facility] ([facility]) [address] [place] [address] 12/11/2024 12:16:41 12/11/2024 13:17:20 Bleeding from female genital tract during [id number] O46.90 VSS. No discomfort on exam today. HCG quant drawn. Keep f/u with OB this week.No vaginal intercours e until re-evaluat ed by OB.If you develop severe pain or bleeding through more than 1 pad per hour then f/u in ER. Health Concerns Section Related Observation LastModified by Organization Detai ls LastModified Time None Recorded Concern Status LastModified by Organization Details LastModified Time None Recorded Payers Encounter Date Sequence Insurance Name Policy Number Policy Sullivan Covered Member ID Sullivan Member ID Guarantor Name 12/11/2024 1 [place] Eliot Smalls [id number] Eliot Smalls Notes Date Note Type Note Provider Name and Address Organization Details Recorded Time 12/11/2024 text/html walk-in; PCP Dr. Philippe Patient took a test two weeks ago and it was positive. She thinks she's 5 weeks . Has her first OB appointment on Wednesday. She started bleeding this morning. She states it is dark blood with small clots. She is having some cramping also.light days pad; not saturated. some light spotting then some heavier. had some pelvic cramping earlier this morning.[facility] November 03-2024. 4th . EROS RICKS, [address], [address], [facility] 12/11/2024 13:56:28 OBGyn Episode Ob Episode Information Episode Created Date Number of Fetuses Patient Bloodtype Patient rh Status Prepregnancy Weight lbs Domestic Partner Domestic Partner Phone Father Name Orthopedic Shoes Salesperson Status 11/04/19 23 1 A Positive Shanye OPEN Fetus Data First Name Last Name Admitted to NICU Weight (g) Sex Living Outcome Pediatric Complications Fetus ID Race Codes Race Delivery Type Hany gilliam false 3316.89 15 M true Full Term [id number] [id number] White VAGINAL Canelo Calculation Initial Canelo Date Initial Exam Date Initial Exam Provider Initial Ultrasound Date Last Menstrual Period Date Ultra Sound Weeks Gestation 06/11/2023 11/03/2022 0 Eighteen To Twenty Week Canelo Update Ultra Sound Date Fundal Height At Umbil Quickening Date Ultra Sound Latest Weeks Gestation Final Canelo Confirmed By Final Canelo Confirmed Date Final Canelo Date Ultra Sound Latest Days Gestation 0 0 Pre-long Flowsheet Flowsheet Date 11/03/2022 Alexandra Score Blood Edema Fundus Height Fundus Units Glucose Ketones Leukocytes Nitrite Labor Signs Protein Cervic Dilation Cervic Effacement Cervic Station Type Weight in lbs Pre/Post Dialysis Refused Weight 162.298161004585 BP Diastolic BP Location Tested BP Systolic BP Type 68 R arm 114 sitting Fetus Heart Rate Present Fetus Movement Comments Flowsheet Date 11/25/2022 Alexandra Score Blood Edema Fundus Height Fundus Units Glucose Ketones Leukocytes Nitrite Labor Signs Protein Cervic Dilation Cervic Effacement Cervic Station Type Weight in lbs Pre/Post Dialysis Refused With clothes 161.861905378093 BP Diastolic BP Location Tested BP Systolic BP Type 74 L arm 100 sitting Fetus Heart Rate Present Fetus Movement Comments Flowsheet Date 12/03/2022 Alexandra Score Blood Edema Fundus Height Fundus Units Glucose Ketones Leukocytes Nitrite Labor Signs Protein Cervic Dilation Cervic Effacement Cervic Station Type Weight in lbs Pre/Post Dialysis Refused Weight 158.971763416960 BP Diastolic BP Location Tested BP Systolic BP Type 72 L arm 116 sitting Fetus Heart Rate Present A 156 Present Fetus Movement Comments NOB- n/v, fatigue, GUTIERREZ, dizzi ness Flowsheet Date 01/12/2023 Alexandra Score Blood Edema Fundus Height Fundus Units Glucose Ketones Leukocytes Nitrite Labor Signs Protein Cervic Dilation Cervic Effacement Cervic Station none 1+ Negative trace Type Weight in lbs Pre/Post Dialysis Refused Weight 161.002712399379 BP Diastolic BP Location Tested BP Systolic BP Type 68 R arm 120 sitting Fetus Heart Rate Present A 144 Present Fetus Movement A Yes Comments Headaches, occ cramping, kasandra ma to feet, dizziness Flowsheet Date 01/28/2023 Alexandra Score Blood Edema Fundus Height Fundus Units Glucose Ketones Leukocytes Nitrite Labor Signs Protein Cervic Dilation Cervic Effacement Cervic Station Type Weight in lbs Pre/Post Dialysis Refused BP Diastolic BP Location Tested BP Systolic BP Type Fetus Heart Rate Present Fetus Movement Comments Flowsheet Date 01/28/2023 Alexandra Score Blood Edema Fundus Height Fundus Units Glucose Ketones Leukocytes Nitrite Labor Signs Protein Cervic Dilation Cervic Effacement Cervic Station none 1+ Negative 1+ Type Weight in lbs Pre/Post Dialysis Refused Weight 164.706557600175 BP Diastolic BP Location Tested BP Systolic BP Type 64 118 sitting Fetus Heart Rate Present A 144 Present Fetus Movement A Yes Comments headache, occ cramping, vagi nal discharge, edema to legs Flowsheet Date 02/02/2023 Alexandra Score Blood Edema Fundus Height Fundus Units Glucose Ketones Leukocytes Nitrite Labor Signs Protein Cervic Dilation Cervic Effacement Cervic Station Type Weight in lbs Pre/Post Dialysis Refused BP Diastolic BP Location Tested BP Systolic BP Type Fetus Heart Rate Present Fetus Movement Comments U/S of 01/28/23- EDC-06/06/23, EGA-21.4, Vertex position, placenta is posterior, grade , normal AFV, FHT-130, anatomic survey is normal. Flowsheet Date 02/24/2023 Alexandra Score Blood Edema Fundus Height Fundus Units Glucose Ketones Leukocytes Nitrite Labor Signs Protein Cervic Dilation Cervic Effacement Cervic Station 24 cm none 1+ Negative trace Type Weight in lbs Pre/Post Dialysis Refused Weight 171.362697075058 BP Diastolic BP Location Tested BP Systolic BP Type 62 100 sitting Fetus Heart Rate Present A 142 Present Fetus Movement A Yes Comments occ cramping, headache, vagi nal discharge, shortness of breath, edema legs Flowsheet Date 03/12/2023 Alexandra Score Blood Edema Fundus Height Fundus Units Glucose Ketones Leukocytes Nitrite Labor Signs Protein Cervic Dilation Cervic Effacement Cervic Station Type Weight in lbs Pre/Post Dialysis Refused BP Diastolic BP Location Tested BP Systolic BP Type Fetus Heart Rate Present Fetus Movement Comments Healthy Blue RA complete Flowsheet Date 03/26/2023 Alexandra Score Blood Edema Fundus Height Fundus Units Glucose Ketones Leukocytes Nitrite Labor Signs Protein Cervic Dilation Cervic Effacement Cervic Station 30 cm none 1+ Negative trace Type Weight in lbs Pre/Post Dialysis Refused Weight 178.53203512436 BP Diastolic BP Location Tested BP Systolic BP Type 68 112 sitting Fetus Heart Rate Present A 142 Present Fetus Movement A Yes Comments Occ cramping, edema hands an d legs, headache, SOB Flowsheet Date 03/31/2023 Alexandra Score Blood Edema Fundus Height Fundus Units Glucose Ketones Leukocytes Nitrite Labor Signs Protein Cervic Dilation Cervic Effacement Cervic Station none 2+ Negative trace Type Weight in lbs Pre/Post Dialysis Refused Weight 180.129990165457 BP Diastolic BP Location Tested BP Systolic BP Type 68 120 sitting Fetus Heart Rate Present A 142 Present Fetus Movement A Yes Comments [facility] t is still cramping ,headache, edema, dizziness, sob Flowsheet Date 04/15/2023 Alexandra Score Blood Edema Fundus Height Fundus Units Glucose Ketones Leukocytes Nitrite Labor Signs Protein Cervic Dilation Cervic Effacement Cervic Station 31 cm none 1+ trace Type Weight in lbs Pre/Post Dialysis Refused Weight 181.967530730996 BP Diastolic BP Location Tested BP Systolic BP Type 70 112 sitting Fetus Heart Rate Present A 154 Present Fetus Movement A Yes Comments fatigue, heartburn, cramping , nausea, edema to feet, headache, sob, script given for TDap Flowsheet Date 04/29/2023 Alexandra Score Blood Edema Fundus Height Fundus Units Glucose Ketones Leukocytes Nitrite Labor Signs Protein Cervic Dilation Cervic Effacement Cervic Station 34 none 2+ trace Type Weight in lbs Pre/Post Dialysis Refused Weight 183.853384501902 BP Diastolic BP Location Tested BP Systolic BP Type 80 116 Fetus Heart Rate Present A 148 Present Fetus Movement A Yes Comments Left flank pain, fatigue, sw elling in feet and hands, Daily Headaches Flowsheet Date 05/13/2023 Alexandra Score Blood Edema Fundus Height Fundus Units Glucose Ketones Leukocytes Nitrite Labor Signs Protein Cervic Dilation Cervic Effacement Cervic Station none 1+ Negative trace Type Weight in lbs Pre/Post Dialysis Refused Weight 193.48919958316 BP Diastolic BP Location Tested BP Systolic BP Type 72 120 sitting Fetus Heart Rate Present A 152 Present Fetus Movement A Yes Comments headaches, abd pain/cramping , edema to feet/face/hands, low back pain, group B today Flowsheet Date 05/18/2023 Alexandra Score Blood Edema Fundus Height Fundus Units Glucose Ketones Leukocytes Nitrite Labor Signs Protein Cervic Dilation Cervic Effacement Cervic Station Type Weight in lbs Pre/Post Dialysis Refused BP Diastolic BP Location Tested BP Systolic BP Type Fetus Heart Rate Present Fetus Movement Comments GrpB Negative. OB records fa xed Flowsheet Date 05/18/2023 Alexandra Score Blood Edema Fundus Height Fundus Units Glucose Ketones Leukocytes Nitrite Labor Signs Protein Cervic Dilation Cervic Effacement Cervic Station Type Weight in lbs Pre/Post Dialysis Refused BP Diastolic BP Location Tested BP Systolic BP Type Fetus Heart Rate Present Fetus Movement Comments Reg Medicaid RA complete Flowsheet Date 05/20/2023 Alexandra Score Blood Edema Fundus Height Fundus Units Glucose Ketones Leukocytes Nitrite Labor Signs Protein Cervic Dilation Cervic Effacement Cervic Station 36 cm none 1+ Negative trace 1cm 30% -3 Type Weight in lbs Pre/Post Dialysis Refused Weight 198.101067996524 BP Diastolic BP Location Tested BP Systolic BP Type 76 140 sitting Fetus Heart Rate Present A 158 Present Fetus Movement A Yes Comments abdominal pain/cramping, kasandra ma to feet/face/hands, headache, sob, low back pain Flowsheet Date 05/27/2023 Alexandra Score Blood Edema Fundus Height Fundus Units Glucose Ketones Leukocytes Nitrite Labor Signs Protein Cervic Dilation Cervic Effacement Cervic Station 36 none 2+ Negative trace 1cm 30% -3 Type Weight in lbs Pre/Post Dialysis Refused Weight 198.121424685477 BP Diastolic BP Location Tested BP Systolic BP Type 78 134 sitting Fetus Heart Rate Present A 146 Present Fetus Movement A Yes Comments abdominal pain/cramping, spo tting red blood 2 days ago, edema to feet/hands/face, headache, sob back pain Flowsheet Date 06/02/2023 Alexandra Score Blood Edema Fundus Height Fundus Units Glucose Ketones Leukocytes Nitrite Labor Signs Protein Cervic Dilation Cervic Effacement Cervic Station 38 cm none 1+ Negative trace 2cm 50% -3 Type Weight in lbs Pre/Post Dialysis Refused Weight 197.93592604237 BP Diastolic BP Location Tested BP Systolic BP Type 82 140 sitting Fetus Heart Rate Present A 146 Present Fetus Movement A Yes Comments headaches are getting worse, back/pelvic pain, cramping, nausea, edema face/hands/feet, sob, dizziness, cough, nasal congestion Flowsheet Date 07/14/2023 Alexandra Score Blood Edema Fundus Height Fundus Units Glucose Ketones Leukocytes Nitrite Labor Signs Protein Cervic Dilation Cervic Effacement Cervic Station Type Weight in lbs Pre/Post Dialysis Refused Weight 182.551669104160 BP Diastolic BP Location Tested BP Systolic BP Type 72 110 Fetus Heart Rate Present Fetus Movement Comments Flowsheet Date 12/11/2024 Alexandra Score Blood Edema Fundus Height Fundus Units Glucose Ketones Leukocytes Nitrite Labor Signs Protein Cervic Dilation Cervic Effacement Cervic Station Type Weight in lbs Pre/Post Dialysis Refused Weight 188.287695647813 BP Diastolic BP Location Tested BP Systolic BP Type 80 R arm 116 sitting Fetus Heart Rate Present Fetus Movement Comments Menstrual History Last Menstrual Date Menses Monthly On Bcp Conception Prior Menses Frequency Hcg Plus Date Menarche Onset Age Genetic Screening And Infection History Question Response Note Patient's Age Will Be 35 Yea rs Or Older At Estimated Date of Delivery false Thalassemia (Lao, Czech, Mediterranean, Or Background): MCV < 80 false Neural Tube Defect (Meningomyelocele, Spina Bifi da, Or Anencephaly) false Congenital Heart Defect false Down Syndrome false Hemant-Sachs (eg, Confucianism, Cajun, [place]) f alse Paramjit Disease false Sickle Cell Disease Or Trait () false Hemophilia Or Other Blood Disorders false Muscular Dystrophy false Cystic Fibrosis false Litchfield's Chorea false Intellectual Disability/Autism false b chinoer If Yes, Was Person Tested For Fragile X? false Other Inherited Genetic Or Chromosomal Disorder false Maternal Metabolic Disorder (eg, Type 1 Diabetes , PKU) false Patient Or Baby's Father Had A Child With Defects Not Listed Above false Recurrent Loss, Or A Stillbirth false Medications (including Suppl ements, Vitamins, Herbs, OTC Drugs), Illicit/Recreational Drugs, Alcohol false If Yes, Agent(s) And Strength/Dosage false Any Other Genetic History false Live With Someone With TB Or Exposed To TB false Patient Or Partner Has History Of Genital Herpes false Rash Or Viral Illness Since Last Menstrual Perio d false History Of STD, Gonorrhea, Chlamydia, HPV, Syphi lis false Other Infection History false History of HIV false History of Hepatitis false Prior GBS-infected child false Hemoglobinopathy Or Carrier false Other Structural Defect false Recent Travel History Outside of Country false Delivery Information Delivery Date Delivery Type Labor Anesthesia Weeks Gestation Incision Type Labor Labor Length Hrs Delivered By Post Complications Tubal Sterilization Discharge Date Comments 4 Sp[facility]a ne[facility] Regional-Ep idural false Megan Wyatt MD None Discharge Information Feeding Method Contraceptive Method Maternal HG B and HCT Levels Bottle
--- OUTSIDE RECORDS SUMMARY | 2024-12-11 17:45 | XMS_ITS | Data Portability ---
Author Organization LOLA Cameron Hinkle [facility], [facility] HospitalNancyBRENTON CruzLOVELACE [facility] Address [address] [address] Care Team Providers Care Hose Stripper Name Role Phone HARDIKMEGAN RASHID Primary Care Provider Assessment No assessment recorded. Plan of Treatment Reminders Order Date Submit Date Provider Last Modified By Organization Details Last Modified Time Details Appointments ACUTE VISIT 2024 11:10A M WALK-IN Not available Not available Not available NOB 15 2024 02:15P M Timo Philippe MD Not available Not available Not available Lab beta-HCG, quantitat domenica, serum or plasma 2024 025 [facility], [address] [place] [address], [facility] [address] [place], [address], 12/11/2024 12:34:16 Referral None recorded. Procedures None recorded. Surgeries None recorded. Imaging None recorded. Medication Orders escitalop chivo 10 mg tablet 2023 024 [facility] [address], [address], 12/11/2024 12:24:20 Xulane 150 mcg-35 mcg/24 hr transderm al patch 2023 024 [email or web address] [facility] [address], [address], 07/28/2023 13:00:11 Patient TargetsNo targets recorded. Patient InstructionsNo instructions recorded. Reason for Referral None Reported. Results Created Date Observation Date Name Description Value Unit Range Abnormal Flag Note LastModifiedBy Organization Detail LastModifiedTime 05/03/20 23 05/03/2023 urina lysis , compl ete color yellow Not Available [facility] ([facility]) [address] [place], [address], 04/29/2023 15:24:09 05/03/20 23 05/03/2023 urina lysis , compl ete clarity cloudy clear abnormal Not Available [facility] ([facility]) [address] [place], [address], 04/29/2023 15:24:09 05/03/20 23 05/03/2023 urina lysis , compl ete glucose negati ve negati ve Not Available [facility] ([facility]) [address] [place], [address], 04/29/2023 15:24:09 05/03/20 23 05/03/2023 urina lysis , compl ete bilirubin negati ve negati ve Not Available [facility] ([facility]) [address] [place], [address], 04/29/2023 15:24:09 05/03/20 23 05/03/2023 urina lysis , compl ete ketones negati ve negati ve Not Available [facility] ([facility]) [address] [place], [address], 04/29/2023 15:24:09 05/03/20 23 05/03/2023 urina lysis , compl ete specific gravity 1.020 1.005- 1.025 Not Available [facility] ([facility]) [address] [place], [address], 04/29/2023 15:24:09 05/03/20 23 05/03/2023 urina lysis , compl ete pH 8.5 5.0-7. 0 Not Available [facility] ([facility]) [address] [place], [address], 04/29/2023 15:24:09 05/03/20 23 05/03/2023 urina lysis , compl ete protein trace abnormal Not Available [facility] ([facility]) [address] [place], [address], 04/29/2023 15:24:09 05/03/20 23 05/03/2023 urina lysis , compl ete uro 0.2 Not Available [facility] ([facility]) [address] [place], [address], 04/29/2023 15:24:09 05/03/20 23 05/03/2023 urina lysis , compl ete nitrate negati ve negati ve Not Available [facility] ([facility]) [address] [place], [address], 04/29/2023 15:24:09 05/03/20 23 05/03/2023 urina lysis , compl ete blood trace negati ve abnormal Not Available [facility] ([facility]) [address] [place], [address], 04/29/2023 15:24:09 05/03/20 23 05/03/2023 urina lysis , compl ete leukocytes 3+ negati ve abnormal Not Available [facility] ([facility]) [address] [place], [address], 04/29/2023 15:24:09 05/03/20 23 05/03/2023 urina lysis , compl ete WBC 40-45 0 abnormal Not Available [facility] ([facility]) [address] [place], [address], 04/29/2023 15:24:09 12/04/20 23 05/03/2023 urina lysis , compl ete RBC 10-12 0 abnormal Not Available [facility] ([facility]) [address] [place], [address], 04/29/2023 15:24:09 05/03/20 23 05/03/2023 urina lysis , compl ete epi cells 12-15 0 abnormal Not Available [facility]) [address] [place], [address], 04/29/2023 15:24:09 05/03/20 23 05/03/2023 urina lysis , compl ete bacteria 1+ mixed angle/ 2+ amorph ous abnormal Not Available [facility] ([facility]) [address] [place], [address], 04/29/2023 15:24:09 05/03/20 23 05/03/2023 urina lysis , compl ete other buddin g yeast seen abnormal Not Available [facility] ([facility]) [address] [place], [address], 04/29/2023 15:24:09 05/13/20 23 05/16/2023 STREP TOCOC CUS, GROUP B CULTU RE streptococcu s, group B culture SEE NOTE STREP TOCOC CUS, GROUP B CULTU RE Micro Numbe r: [id number] Test Statu s: Final Speci men Sourc e: Vagin al/an orect al Speci men Quali ty: Adequ ate Resul t: No group B Strep tococ cus isola mercy Note per CDC guide lines optim al recov nicolette is achie indu by swabb ing both the lower vagin a and rectu m (thro ugh the anal sphin cter) . Not Available [facility] [address] , [place], [address], 05/16/2023 09:28:03 Result Notes None recorded. Problems Name Problem SNOMED Code Status Onset Date Resolution Date Notes Provider Name and Address Organization Details Recorded Time Normal in multigravid a 0327916024731 06 Active 2022 KENNEDY ASCENCIO [facility], LNancyLLilian 3 14:10:05 depression 41317057 Active 2023 ROSANNE DARYL [facility], JesúsLLilian 4 15:19:54 Contracepti on care management Active 2023 ROSANNE ALCALA [facility], LNancyLNancyCNancy 4 15:19:58 Problem Notes None recorded. Medical [...] Recorded Body height Body mass index (BMI) [Percentile] Per age and sex Body mass index (BMI) Body weight Heart rate Respiratory rate Body temperature Systolic And Diastolic Provider Name and Address Organization Details Last Updated DateTime 4 156.21 cm 97 % 36.7 kg/m2 84168.4 66069 g 108 /min 20 /min 97.9 [degF] 140/82 mm[Hg] KENNEDY PEREZ [facility], LNancyNancy 4 15:03:27 Date Recorded Body height Body mass index (BMI) Body mass index (BMI) [Percentile] Per age and sex Body weight Oxygen saturation Oxygen saturation in Arterial blood by Pulse oximetry Heart rate Body temperature Respiratory rate Systolic And Diastolic Provider Name and Address Organization Details Last Updated DateTime 4 156.21 cm 33.9 kg/m2 96 % 08266.1 11079 g 97 % 97 % 96 /min 98.2 [degF] 18 /min 110/72 mm[Hg] ROSANNE ALCALA [facility] 4 15:23:08 Date Recorded Body height Body mass index (BMI) Body weight Respiratory rate Oxygen saturation Oxygen saturation in Arterial blood by Pulse oximetry Heart rate Body temperature Systolic And Diastolic Provider Name and Address Organization Details Last Updated DateTime 5 156.21 cm 34.9 kg/m2 18021.3 7 g 17 /min 99 % 99 % 93 /min 98.3 [degF] 116/80 mm[Hg] MARCI STOUT [facility] 5 12:21:56 Date Recorded Body height Body mass index (BMI) [Percentile] Per age and sex Body mass index (BMI) Body weight Oxygen saturation Oxygen saturation in Arterial blood by Pulse oximetry Heart rate Respiratory rate Body temperature Systolic And Diastolic Provider Name and Address Organization Details Last Updated DateTime 3 156.21 cm 97 % 36.8 kg/m2 34730.2 00495 g 97 % 97 % 108 /min 18 /min 97.7 [degF] 140/76 mm[Hg] KENNEDY PEREZ [facility] 3 11:46:35 Date Recorded Systolic And Diastolic Provider Name and Address Organization Details Last Updated DateTime 05/27/2023 134/78 mm[Hg] Megan Magdaleno MD [address] [place] [address], [address], [facility] 05/27/2023 15:10:47 Date Recorded Body height Body mass index (BMI) [Percentile] Per age and sex Body mass index (BMI) Body weight Oxygen saturation Oxygen saturation in Arterial blood by Pulse oximetry Heart rate Respiratory rate Body temperature Provider Name and Address Organization Details Last Updated DateTime 3 156.21 cm 97 % 36.9 kg/m2 74483.6 79634 g 98 % 98 % 112 /min 20 /min 98 [degF] KENNEDY PEREZ [facility] 3 14:45:10 Social History Question Answer Notes LastModified by Organizat ion Details LastModified Time Tobacco Smoking Status Never Smoker CHLOEJORGE PAULA [facility]plan [facility] 11/03/2022 14:04:47 What Was The Date Of Your Most Recent Tobacco Screening? 12/11/2024 [email or web address] Information not available 12/11/2024 What Is Your [...] other forms of tobacco or nicotine? Yes [email or web address] Information not available 12/11/2024 What is your level of alcohol consumption? 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 Yes Information not available 11/03/2022 Do you or have you ever used e-cigarettes or vape? Current user of electronic cigarettes [email or web address] Information not available 12/11/2024 Mental Status None [...] Recorded Time Tdap 9 completed ROSANNE kaplan [facility] 07/14/2023 15:11:48 IPV 4 completed ROSANNE kaplan [facility] 07/14/2023 15:11:48 meningococcal conjugate quadrivalent, MenACWY-TT (MCV4) 4 completed ROSANNE ALCALA null, [facility] 07/14/2023 15:11:48 varicella 4 completed ROSANNE ALCALA null, [facility] 07/14/2023 15:11:48 IPV 4 completed KENNEDY BORREGOER null, [facility] 11/03/2022 14:01:15 IPV 3 completed KENNEDY BORREGOER null, [facility] 11/03/2022 14:01:15 MMR 6 completed KENNEDY MITCHELL null, [facility] 11/03/2022 14:01:15 pneumococcal conjugate PCV 7 6 completed KENNEDY BORREGOER null, [facility] 11/03/2022 14:01:15 pneumococcal conjugate PCV 7 3 completed KENNEDY BORREGOER null, [facility] 11/03/2022 14:01:15 pneumococcal polysaccharide PPV23 3 completed KENNEDY BORREGOER null, [facility] 11/03/2022 14:01:15 Tdap 2 completed KENNEDY BORREGOER null, [facility] 11/03/2022 14:01:15 Tdap 6 completed KENNEDY BORREGOER null, [facility] 11/03/2022 14:01:15 Hep B, unspecified formulation 3 completed CHLOEBA NEUANGELER null, [facility] 11/03/2022 14:01:16 Hep B, unspecified formulation 3 completed TREBA NEUSCHWANDER null, [facility] 11/03/2022 14:01:16 Hib (PRP-OMP) 6 completed TREBA NEUSCHWANDER null, [facility] 11/03/2022 14:01:16 Hib (PRP-T) 4 completed TREBA NEUSCHWANDER null, [facility] 11/03/2022 14:01:16 Hib (PRP-T) 3 completed TREBA NEUSCHWANDER null, [facility] 11/03/2022 14:01:16 Hib (PRP-T) 3 completed TREBA NEUSCHWANDER null, [facility] 11/03/2022 14:01:16 meningococcal MCV4P 6 completed TREBA NEUSCHWANDER null, [facility] 11/03/2022 14:01:16 DTaP 4 completed TREBA NEUSCHWANDER null, [facility] 11/03/2022 14:01:16 DTaP 6 completed TREBA NEUSCHWANDER null, [facility] 11/03/2022 14:01:16 DTaP 3 completed TREBA NEUSCHWANDER null, [facility] 11/03/2022 14:01:16 DTaP-Hep B-IPV 4 completed TREBA NEUSCHWANDER null, [facility] 11/03/2022 14:01:16 Past Encounters Encounter ID Performer Location Encounter Start Date Encounter Closed Date Diagnosis/Indication Diagnosis SNOMED-CT Code Diagnosis ICD10 Code Diagnosis Note [id number] Megan Magdaleno MD [facility]) [address] [place] [address] 11/03/2022 13:23:25 11/03/2022 18:59:40 Normal in multigravida 1788806214 00860 Z34.80 [id number] ROBB BUCIO [facility]) [address] [place] [address] 5 11/25/2022 09:50:43 11/25/2022 11:37:19 Headache 87354557 R51.9 Gestation period, 11 weeks 19493899 Z3A.11 [id number] Megan Magdaleno MD [facility]) [address] [place] [address] 5 12/03/2022 10:12:40 12/14/2022 04:47:34 Normal in multigravida 4255493024 47027 Z34.81 Morning sickness 1376128 6 O21.9 [id number] Megan Magdaleno MD [facility]) [address] [place] [address] 5 01/12/2023 10:59:45 01/12/2023 14:54:45 60914887 Z33.1 Normal 6162384 2 Z34.82 Gestation period, 18 weeks 34030156 Z3A.18 [id number] Megan Magdaleno MD [facility] ([facility]) [address] [place] [address] 5 01/28/2023 14:24:38 01/28/2023 15:33:04 [id number] Megan Magdaleno MD [facility]) [address] [place] [address]554 5 01/28/2023 14:25:31 01/28/2023 19:40:40 96248833 Z33.1 Multigravida 105745612 Z 34.82 Gestation period, 20 weeks 85378800 Z3A.20 [id number] Megan Magdaleno MD [facility]) [address] [place], [place] [address] 5 02/24/2023 14:14:27 02/24/2023 17:25:02 Normal in multigravida 6331804897 20632 Z34.81 Multigravida 504782348 Z 34.82 Gestation period, 24 weeks 028855778 Z3A.24 [id number] Megan Magdaleno MD [facility] ([facility]) [address] [place] [address] 5 03/26/2023 13:52:53 03/26/2023 18:16:36 Normal in multigravida 2082598177 34981 Z34.81 Gestation period, 29 weeks 46390841 Z3A.29 [id number] Megan Magdaleno MD [facility] ([facility]) [address] [place] [address]214 5 03/31/2023 09:11:20 03/31/2023 11:12:44 Multigravida 298335349 Z34.83 Gestation period, 29 weeks 89595204 Z3A.29 Urinary tr act infection in 395787941 O23.43 [id number] Megan Magdaleno MD [facility] ([facility]) [address] [place] [address] 5 04/15/2023 14:00:16 04/24/2023 19:04:53 Multigravida 458212673 Z34.83 Gestation period, 31 weeks 52957824 Z3A.31 [id number] Megan Magdaleno MD [facility] ([facility]) [address] [place] [address] 5 04/29/2023 14:13:16 05/04/2023 10:50:54 Normal in multigravida 0250122778 89130 Z34.83 Gestation period, 33 weeks 57549414 Z3A.33 Left flank pain 08486481 9 R10.9 [id number] Megan Magdaleno MD [facility] ([facility]) [address] [place] [address]103 5 05/13/2023 15:16:02 05/13/2023 16:49:26 Normal in multigravida 7165667798 92948 Z34.83 Gestation period, 35 weeks 44903030 Z3A.35 [id number] Megan Magdaleno MD [facility] ([facility]) [address] [place] [address] 5 05/20/2023 11:20:40 05/20/2023 18:49:25 Normal in multigravida 2019213496 89395 Z34.83 Gestation period, 36 weeks 00070148 Z3A.36 [id number] Megan Magdaleno MD [facility] ([facility]) [address] [place] [address] 5 05/27/2023 14:13:41 05/27/2023 15:13:09 Normal in multigravida 6708872196 04895 Z34.83 Gestation period, 37 weeks 25966673 Z3A.37 [id number] Megan Magdaleno MD [facility] ([facility]) [address] [place], [place] [address] 06/02/2023 14:37:20 06/02/2023 18:51:16 Normal in multigravida 6970820177 67011 Z34.83 Gestation period, 38 weeks 18195595 Z3A.38 [id number] Megan Magdaleno MD [facility] ([facility]) [address] [place] [address] 5 07/14/2023 14:44:11 07/14/2023 16:30:07 care 867206076 Z39.2 depression 58 013756 F53.0 Anxiety 98788659 F41.9 Contracept ion care management 838315698 Z30.9 [id number] ROBB COURTNEY [facility] ([facility]) [address] [place] [address] 5 12/11/2024 12:16:41 12/11/2024 13:17:20 Bleeding from female genital tract during 4094534520 7020222 O46.90 VSS. No discomfort on exam today. [...] by Organization Details LastModified Time None Recorded Advance Directives Directive None Recorded Payers Insurance Date Sequence Insurance Name Policy Number Policy Sullivan Covered Member ID Sullivan Member ID Guarantor Name 02/24/2023 2 [employer] [place] [place] [id number] Eliot Abdalla Silm [id number] Eliot Abdalla Slim 12/10/2024 [place] [facility] (INSTITUTIONAL ) Eliot Abdalla Slim [id number] Eliot Abdalla Slim 04/29/2023 1 [employer] [place] [place] [id number] Eliot Abdalla Slim [id number] Eliot Abdalla Slim 02/24/2023 3 [facility] - DOS ON OR AFTER 17 (MEDICAID REPLACEMENT - HMO) Eliot Abdalla Slim [id number] Eliot Abdalla Slim 04/27/2023 1 [facility] AET (POS II) Eliot Abdalla Slim [id number] Eliot Abdalla Slim 02/24/2023 2 [facility] Eliot Abdalla Smalls [id number] Eliot Abdalla Smalls 12/08/2024 1 [place] Eliot Abdalla Slim [id number] Eliot Abdalla Slim Notes Date Note Type Note Provider Name and Address Organization Details Recorded Time 05/20/2023 text/html jr ob routineRep orted bypatient.Associated Symptoms:no contractions; normal movement; no bleeding; no vaginal/vulvar itching or irritation; no dysuria; no frequency; no urgency; no fever; no nausea; no emesis; no constipation; no diarrhea/loose stool; no visual changes; no dizziness;abdominal pain;cramping;vaginal discharge;edema(feet, hands,face);headache; breathlessnessNotes:b ack painPt denies any drug, alcohol or tobacco use Megan Magdaleno MD [address] [place] [address], [phone], [facility] 05/20/2023 12:11:55 05/27/2023 text/html ob routineRep orted bypatient.Associated Symptoms:normal movement; no vaginal/vulvar itching or irritation; no dysuria; no frequency; no urgency; no fever; no nausea; no emesis; no constipation; no diarrhea/loose stool; no visual changes; no dizziness;abdominal pain;cramping;bleedin g(spotting 2 days ago);edema(feet, hands,face);headache; breathlessnessNotes:b ack painPt denies any drug, alcohol or tobacco use Megan Magdaleno MD [address] [place] [address], [address], [facility], LSeth 05/27/2023 15:10:59 06/02/2023 text/html ob routineRep orted bypatient.Associated Symptoms:no contractions; normal movement; no vaginal discharge; no vaginal/vulvar itching or irritation; no dysuria; no frequency; no urgency; no fever; no emesis; no constipation; no diarrhea/loose stool; no visual changes;abdominal pain;cramping;nausea; edema(feet, hands,face);headache; dizziness;breathlessn essNotes:back painPt denies any drug, alcohol or tobacco use cough, nasal congestion Megan Magdaleno MD [address] [place] [address], [phone], [facility], LNancyLLilian 06/18/2023 10:45:58 07/14/2023 text/html VisitReported bypatient.Onset/Timin g:date of delivery: (06/05/23) Quality: Context:no complications; no labor complications; feeding choice: bottle; depression; good support from partner/family; resumed sexual activity no; resumed menstrual bleeding no Associated Symptoms:no abnormal bleeding; no vaginal discharge; no pelvic pain; laceration well healed; no dysuria; no fever Contraception Plan:contraceptive patch Megan Magdaleno MD [address] [place] [address], [phone], [facility], JesúsLLilian 07/14/2023 16:27:20 12/11/2024 text/html walk-in; PCP Dr. Philippe Patient [...] heavier. had some pelvic cramping earlier this morning.LNMP November 03-2024. 4th . EROS RICKS, [employer] [address] [place], [address], [facility] 12/11/2024 13:56:28 OBGyn Episode Ob Episode Information Episode Created Date Number of Fetuses Patient Bloodtype Patient rh Status Prepregnancy Weight lbs Domestic Partner Domestic Partner Phone Father Name Buffet Attendant Status 07/14/19 24 1 CLOSED Fetus Data First Name Last Name Admitted to NICU Weight (g) Sex Living Outcome Pediatric Complications Fetus ID Race Codes Race Delivery Type 3316.66 4704 M Full Term 3725 VAGINAL Canelo Calculation Initial Canelo Date Initial Exam Date Initial Exam Provider Initial Ultrasound Date Last Menstrual Period Date Ultra Sound Weeks Gestation 0 Eighteen To Twenty Week Canelo Update Ultra Sound Date Fundal Height At Umbil Quickening Date Ultra Sound Latest Weeks Gestation Final Canelo Confirmed By Final Canelo Confirmed Date Final Canelo Date Ultra Sound Latest Days Gestation 0 0 Menstrual History Last Menstrual Date Menses Monthly On Bcp Conception Prior Menses Frequency Hcg Plus Date Menarche Onset Age Delivery Information Delivery Date Delivery Type Labor Anesthesia Weeks Gestation Incision Type Labor Labor Length Hrs Delivered By Post Complications Tubal Sterilization Discharge Date Comments 4 Regional- idural 39.1 Discharge Information Feeding Method Contraceptive Method Maternal HG B and HCT Levels Ob Episode Information Episode Created Date Number of Fetuses Patient Bloodtype Patient rh Status Prepregnancy Weight lbs Domestic Partner Domestic Partner Phone Father Name Buffet Attendant Status 11/04/19 23 1 A Positive Shayne OPEN Fetus Data First Name Last Name [...] Ultra Sound Latest Days Gestation 0 0 Pre- Flowsheet Flowsheet Date 11/03/2022 Alexandra Score Blood Edema Fundus Height Fundus Units Glucose Ketones Leukocytes Nitrite Labor Signs Protein Cervic Dilation Cervic Effacement Cervic Station Type Weight in lbs Pre/Post Dialysis Refused Weight 162.920766484915 BP Diastolic BP Location Tested BP Systolic BP Type 68 R arm 114 sitting Fetus Heart Rate Present Fetus Movement Comments Flowsheet Date 11/25/2022 Alexandra Score Blood Edema Fundus Height Fundus Units Glucose Ketones Leukocytes Nitrite Labor Signs Protein Cervic Dilation Cervic Effacement Cervic Station Type Weight in lbs Pre/Post Dialysis Refused With clothes 161.941046675230 BP Diastolic BP Location Tested BP Systolic BP Type 74 L arm 100 sitting Fetus Heart Rate Present Fetus Movement Comments Flowsheet Date 12/03/2022 Alexandra Score Blood Edema Fundus Height Fundus Units Glucose Ketones Leukocytes Nitrite Labor Signs Protein Cervic Dilation Cervic Effacement Cervic Station Type Weight in lbs Pre/Post Dialysis Refused Weight 158.203462545044 BP Diastolic BP Location Tested BP Systolic [...] Weight in lbs Pre/Post Dialysis Refused Weight 161.252726151671 BP Diastolic BP Location Tested BP Systolic [...] Weight in lbs Pre/Post Dialysis Refused Weight 164.215115326826 BP Diastolic BP Location Tested BP Systolic [...] Weight in lbs Pre/Post Dialysis Refused Weight 171.009666253186 BP Diastolic BP Location Tested BP Systolic [...] Weight in lbs Pre/Post Dialysis Refused Weight 178.29478511801 BP Diastolic BP Location Tested BP Systolic [...] Weight in lbs Pre/Post Dialysis Refused Weight 180.991501277231 BP Diastolic BP Location Tested BP Systolic BP Type 68 120 sitting Fetus Heart Rate Present A 142 Present Fetus Movement A Yes Comments hospital F/U from cramping,p t is still cramping ,headache, edema, dizziness, sob Flowsheet Date 04/15/2023 Alexandra Score Blood Edema Fundus Height Fundus Units Glucose Ketones Leukocytes Nitrite Labor Signs Protein Cervic Dilation Cervic Effacement Cervic Station 31 cm none 1+ trace Type Weight in lbs Pre/Post Dialysis Refused Weight 181.400168377612 BP Diastolic BP Location Tested BP Systolic [...] Weight in lbs Pre/Post Dialysis Refused Weight 183.571215641303 BP Diastolic BP Location Tested BP Systolic [...] Weight in lbs Pre/Post Dialysis Refused Weight 193.04202755100 BP Diastolic BP Location Tested BP Systolic [...] Weight in lbs Pre/Post Dialysis Refused Weight 198.019483315825 BP Diastolic BP Location Tested BP Systolic [...] Weight in lbs Pre/Post Dialysis Refused Weight 198.065549468781 BP Diastolic BP Location Tested BP Systolic [...] Weight in lbs Pre/Post Dialysis Refused Weight 197.58126825041 BP Diastolic BP Location Tested BP Systolic [...] Weight in lbs Pre/Post Dialysis Refused Weight [id number] BP Diastolic BP Location Tested BP Systolic BP Type 72 110 Fetus Heart Rate Present Fetus Movement Comments Flowsheet Date 12/11/2024 Alexandra Score Blood Edema Fundus Height Fundus Units Glucose Ketones Leukocytes Nitrite Labor Signs Protein Cervic Dilation Cervic Effacement Cervic Station Type Weight in lbs Pre/Post Dialysis Refused Weight [id number] BP Diastolic BP Location Tested BP Systolic [...] At Estimated Date of Delivery false Thalassemia (Eritrean, Australian, Mediterranean, Or Background): MCV < 80 false Neural Tube Defect (Meningomyelocele, Spina Bifi da, Or Anencephaly) false Congenital Heart Defect false Down Syndrome false Hemant-Sachs (eg, Congregational, Cajun, Romanian-Canyon) f alse Paramjit Disease false Sickle Cell Disease Or Trait () false Hemophilia Or Other Blood Disorders false Muscular Dystrophy false Cystic Fibrosis false [place]'s Chorea false Intellectual Disability/Autism false b rother If Yes, Was Person Tested For Fragile [...] 4 Sponta neous Regional-Ep idural false Megan Magdaleno MD None Discharge Information Feeding Method Contraceptive Method Maternal HG B and HCT Levels Bottle Ob Episode Information Episode Created Date Number of Fetuses Patient Bloodtype Patient rh Status Prepregnancy Weight lbs Domestic Partner Domestic Partner Phone Father Name Buffet Attendant Status 11/04/19 23 1 CLOSED Fetus Data First Name Last Name Admitted to NICU Weight (g) Sex Living Outcome Pediatric Complications Fetus ID Race Codes Race Delivery Type [id number] 4 F Full Term 1081 VAGINAL Canelo Calculation Initial Canelo Date Initial Exam Date Initial Exam Provider Initial Ultrasound Date Last Menstrual Period Date Ultra Sound Weeks Gestation 0 Eighteen To Twenty Week Canelo Update Ultra Sound Date Fundal Height At Umbil Quickening Date Ultra Sound Latest Weeks Gestation Final Canelo Confirmed By Final Canelo Confirmed Date Final Canelo Date Ultra Sound Latest Days Gestation 0 0 Menstrual History Last Menstrual Date Menses Monthly On Bcp Conception Prior Menses Frequency Hcg Plus Date Menarche Onset Age Delivery Information Delivery Date Delivery Type Labor Anesthesia Weeks Gestation Incision Type Labor Labor Length Hrs Delivered By Post Complications Tubal Sterilization Discharge Date Comments 9 38 Carlie Discharge Information Feeding Method Contraceptive Method Maternal HG B and HCT Levels Ob Episode Information Episode Created Date Number of Fetuses Patient Bloodtype Patient rh Status Prepregnancy Weight lbs Domestic Partner Domestic Partner Phone Father Name Buffet Attendant Status 11/04/19 23 1 CLOSED Fetus Data First Name Last Name Admitted to NICU Weight (g) Sex Living Outcome Pediatric Complications Fetus ID Race Codes Race Delivery Type 2948.34 8 M Full Term 1082 VAGINAL Canelo Calculation Initial Canelo Date Initial Exam Date Initial Exam Provider Initial Ultrasound Date Last Menstrual Period Date Ultra Sound Weeks Gestation 0 Eighteen To Twenty Week Canelo Update Ultra Sound Date Fundal Height At Umbil Quickening Date Ultra Sound Latest Weeks Gestation Final Canelo Confirmed By Final Canelo Confirmed Date Final Canelo Date Ultra Sound Latest Days Gestation 0 0 Menstrual History Last Menstrual Date Menses Monthly On Bcp Conception Prior Menses Frequency Hcg Plus Date Menarche Onset Age Delivery Information Delivery Date Delivery Type Labor Anesthesia Weeks Gestation Incision Type Labor Labor Length Hrs Delivered By Post Complications Tubal Sterilization Discharge Date Comments 2 39 Tomasz Discharge Information Feeding Method Contraceptive Method Maternal HG B and HCT Levels
--- NOTE | 2024-12-11 17:57 | W.ED.FEMALGU ---
HPI - Female Genitourinary General: Chief complaint: OB/Uterine Contractions Stated complaint: vaginal bleeding, cramping,+ preg test 2 weeks ago Time Seen by Provider: 12/11/24 17:54 Source: patient Mode of arrival: ambulatory Limitations: no limitations History of Present Illness: 24-year-old female who presents to the ED with complaint of abnormal vaginal bleeding and intermittent mild pelvic pain since 9 AM this morning. Patient states that she took a test 2 weeks ago that was positive. Reports that she had mild bleeding this morning that has gotten progressively heavier each hour with small amounts of blood clots. Denies any recent fevers or abnormal vaginal discharge prior to today. She has her first appointment with [facility] in 2 days. Denies any history of miscarriages. No other complaints at this time. Blood type A+. Onset (ago): hour(s) (9) Location of symptoms: pelvis Severity: mild Quality of pain: cramping Consistency: intermittent Vaginal discharge: none Vaginal bleeding: scant Exacerbating factors: none Relieving factors: none Associated symptoms: Reports no associated symptoms; Deny abdominal pain or nausea Treatment prior to arrival: none Sexual activity: Yes Patient : Yes Possible : at home test positive Related Data Home Medications ?Medication ?Instructions ?Recorded ?Confirmed lsvthpbb-[id number]-Ui-FA 1 mg 1 tab PO DAILY 03/28/23 12/04/24 tablet Previous Rx's ?Medication ?Instructions ?Recorded ibuprofen 800 mg tablet 800 mg PO TID #45 tabs 06/06/23 amoxicillin 500 mg tablet 1,000 mg (2 x 500 mg) PO BID 10 12/04/24 days #40 tabs cetirizine 10 mg tablet (Zyrtec) 10 mg PO DAILY #30 tabs 12/04/24 fluticasone propionate 50 2 spray intranasal BID PRN nasal 12/04/24 mcg/actuation nasal congestion #16 grams spray,suspension (Flonase Allergy Relief) Allergies Allergy/AdvReac Type Severity Reaction Status Date / Time No Known Allergies Allergy Verified 12/04/24 09:52 Review of Systems Const: Denies: fever(s), chills, body aches, fatigue or malaise Card: Denies: chest pain Resp: Denies: dyspnea GI: Denies: abdominal pain, nausea, vomiting or change in bowel habits : Reports: vaginal bleeding and pelvic pain (mild cramping); Denies: flank pain, difficulty voiding, dysuria, urinary frequency or urinary urgency Musc: Denies: back pain Neuro: Denies: dizziness PFSH ED PFSH: Medical History BMI 35.0-35.9,adult Family History Father Diabetes Congestive heart failure (CHF) Hypertension Mother Depression Bipolar disorder Anxiety Social History Smoking and tobacco/nicotine status: current every day tobacco/nicotine user Alcohol intake: never Substance/Drug Use: never Female Reproductive History: Para: 1 Physical Exam Const: COMMON NORMALS: no acute distress, average body habitus, patient oriented x3, no limitations, healthy appearing, alert and well nourished Resp: COMMON NORMALS: normal respiratory effort GI: COMMON NORMALS: Normal to inspection, nondistended, normoactive bowel sounds present, Soft to palpation, non-tender, No hepatosplenomegaly present and no masses PALPATION: Yes Soft to palpation and Yes No hepatosplenomegaly present : COMMON NORMALS: Yes no CVA tenderness BLADDER/KIDNEY EXAM: Yes no CVA tenderness Back/Pelvis: COMMON NORMALS: no CVA tenderness Neuro: COMMON NORMALS: patient oriented x3 SENSORIUM/ORIENTATION: Yes alert Course Vital Signs: Vital signs: Vital Signs Temperature 98.1 F 12/11/24 17:44 Pulse Rate 97 12/11/24 17:44 Respiratory Rate 14 12/11/24 17:44 Blood Pressure 138/82 12/11/24 17:44 Pulse Oximetry 100 12/11/24 17:44 Oxygen Delivery Me thod Room Air 12/11/24 17:44 MDM - Female Medical Decision Making Patient appears no acute distress. Her vital signs are stable. H&H are stable. Her hCG is 29. This is too early to see anything on ultrasound imaging. She has an OB appointment scheduled for Wednesday. Recommend she have her hCG rechecked to see if this is increasing or decreasing. Return precautions discussed. Medical Records I reviewed the patient's medical records. Lab Data I reviewed the patient's lab results. 12/11/24 18:14 Laboratory Results WBC 9.30 10^3/uL (3.29-11.43) 12/11/24 18:14 RBC 5.21 10^6/uL (3.85-5.65) 12/11/24 18:14 Hgb 12.70 g/dL (11.27-16.99) 12/11/24 18:14 Hct 41.0 % (36-47) 12/11/24 18:14 MCV 78.7 fl (85-98) L 12/11/24 18:14 MCH 24.4 pg (27-33) L 12/11/24 18:14 MCHC 31.0 g/dL (30-55) 12/11/24 18:14 RDW 14.3 % (12.1-15.1) 12/11/24 18:14 Plt Count 260 10^3/cmm (157-399) 12/11/24 18:14 MPV 9.9 fL (7.4-10.4) 12/11/24 18:14 Neut % (Auto) 70.0 % 12/11/24 18:14 Lymph % (Auto) 22.0 % 12/11/24 18:14 Dent % (Auto) 6.0 % 12/11/24 18:14 Eos % (Auto) 1.2 % 12/11/24 18:14 Baso % (Auto) 0.3 % 12/11/24 18:14 Neut # (Auto) 6.50 10^3/uL (1.8-7.7) 12/11/24 18:14 Lymph # (Auto) 2.1 10^3/uL (0.8-4.8) 12/11/24 18:14 Dent # (Auto) 0.6 10^3/uL (0.2-0.9) 12/11/24 18:14 Eos # (Auto) 0.1 10^3/uL (0.0-0.8) 12/11/24 18:14 Baso # (Auto) 0.0 10^3/uL (0.0-0.1) 12/11/24 18:14 Nucleated RBC % (auto) 0 % 12/11/24 18:14 Nucleated RBCs # 0.0 /100WBC 12/11/24 18:14 Ser , Semi-Qnt 29.13 mIU/mL 12/11/24 18:14 No radiology studies performed this visit Discharge Plan Discharge Patient Disposition: Home Clinical Impression: Threatened miscarriage Condition: Stable Prescriptions: No Action amoxicillin 500 mg tablet 1,000 mg PO BID 10 Days Qty: 40 0RF cetirizine [Zyrtec] 10 mg tablet 10 mg PO DAILY Qty: 30 0RF fluticasone propionate [Flonase Allergy Relief] 50 mcg/actuation spray,suspension 2 spray intranasal BID PRN (Reason: nasal congestion) Qty: 16 0RF Rx Instructions: administer into each nostril ibuprofen 800 mg Tablet 800 mg PO TID Qty: 45 0RF [id number]-[id number]-[id number]-FA 1 mg Tablet 1 tab PO DAILY Discharge Orders: Discharge ED (Routine); Ordered 12/11/24 Ordered By: Arabella Jolley Referrals: Mika Dow MD [Primary Care Provider, Family Practice] Patient Instructions: Patient Portal & Cristina Instructions Activity Restrictions/Additional Instructions: As we discussed, your hCG today is 29. This is too early to see anything via ultrasound imaging. As we discussed, they will repeat this at your OB appointment on Wednesday to look for the trend (going up or down). Normal progressing pregnancies will usually have doubling hCG levels every 48 hours. If your hCG declines, this most likely will be indicative of a miscarriage. You may return to the ED at any time for any further concerns you may have. 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
[2024-12-11 18:32] LABS: Hematocrit 41.0 % (36-47); Hemoglobin 12.70 g/dL (11.27-16.99); Mean Corpuscular HGB Conc 31.0 g/dL (30-55); Mean Corpuscular Hemoglobin 24.4 pg (27-33); Mean Corpuscular Volume 78.7 fl (85-98); Nucleated Red Blood Cells % 0 %; Platelet Count 260 10^3/cmm (157-399); Red Blood Count 5.21 10^6/uL (3.85-5.65); White Blood Count 9.30 10^3/uL (3.29-11.43)
[2024-12-11 19:01] VITALS: BP 123/68; PULSE 97; RESP 16; O2SAT 97
== END 2024-12-11 19:03 | disposition home or self-care (01) ==
PROVIDERS: Emergency Medicine; Emergency Provider Physician Assistant; PCP Family Medicine
DX: O20.0 Threatened abortion (principal); Z72.0 Tobacco use
CPT/HCPCS: 36415; 84702; 85025; 99283